=== PATIENT | female | born 1965 | race Caucasian/White ===

== ENCOUNTER 2017-05-31 21:29 | Observation (INO) ==
[2017-05-31] MEDS ORDERED: ONDANSETRON 4 MG/2 ML VIAL IV STA (22:05)
[2017-05-31] MEDS ORDERED: MORPHINE 2 MG/1 ML SYRINGE IV STA (22:05)
[2017-05-31] MEDS ORDERED: ONDANSETRON 4 MG/2 ML VIAL ONE (22:11)
[2017-05-31] MEDS ORDERED: MORPHINE 4 MG/1 ML VIAL ONE ×2 (22:12→23:10)
[2017-05-31 23:04] LABS: Basophils % 0.5 % (0.0-0.8); Eosinophils # 0.5 10*3/uL (0.0-0.87); Eosinophils % 6.6 % (0.00-10.9); Hematocrit 30.6 VOL% (35.7-47.0); Hemoglobin 10.1 GM/DL (12.0-16.0); Immature Granulocytes % 0.5 %; Immature Granulocytes Absolute 0.04 #; Lymphocytes % 24.7 % (21.3-54.2); Mean Corpuscular Hemoglobin 32 PG (27-34); Mean Corpuscular Volume 95.3 FL (87-102); Mean Platelet Volume 10.2 FL (9.6-12.0); Monocytes # 0.5 10*3/uL (0.11-0.8); Monocytes % 6.6 % (1.7-12.7); Neutrophils # 4.9 10*3/uL (1.4-7.4); Neutrophils % 61.1 % (38.7-73.9); Platelet Count 270 T/CUMM (130-400); Red Blood Count 3.21 MC/CUMM (3.8-5.5); Red Cell Distribution Width 12.2 % (9.3-17.3)
[2017-05-31 23:12] LABS: Calcium 7.3 MG/DL (8.5-10.1); Osmolality,Calculated 289.8 MOS/KG (273-304)
[2017-06-01] MEDS ORDERED: ceFAZolin 2,000 MG in PREMIX 1 EACH IV ONE (00:30)
[2017-06-01] MEDS ORDERED: LIDOCAINE 1%/EPI INJ 20 ML VIAL ONE (00:53)
[2017-06-01] MEDS ORDERED: BUPIVACAINE MPF 0.25% /EPI 30 ML VIAL ONE (00:53)
[2017-06-01] MEDS ORDERED: TISSUE ADHESIVE 1 EACH APPLICATOR TOP ONE (00:53)
[2017-06-01] MEDS ORDERED: ceFAZolin 1,000 MG VIAL ONE (00:57)
[2017-06-01] MEDS ORDERED: MORPHINE 4 MG/1 ML VIAL IV PRN (01:27)
[2017-06-01] MEDS ORDERED: ONDANSETRON 4 MG/2 ML VIAL IV PRN (01:27)
[2017-06-01] MEDS ORDERED: LACTATED RINGERS 1,000 ML IV SCH ×2 (01:30→01:50)
[2017-06-01 02:06] LABS: Hematocrit 32.9 VOL% (35.7-47.0); Hemoglobin 10.6 GM/DL (12.0-16.0)
[2017-06-01] MEDS ORDERED: PROPOFOL 200 MG/20 ML VIAL IV ONE (02:06)
[2017-06-01] MEDS ORDERED: SEVOFLURANE 1 UNIT/15 MINUTE INH ONE (02:06)
[2017-06-01] MEDS ORDERED: ACETAMINOPHEN 1,000 MG/100 ML VIAL IV ONE (02:07)
[2017-06-01] MEDS ORDERED: SUCCINYLCHOLINE 200 MG/10 ML VIAL ONE (02:07)
[2017-06-01] MEDS ORDERED: fentaNYL 100 MCG/2 ML VIAL ONE (02:07)
[2017-06-01] MEDS ORDERED: LACTATED RINGERS 1,000 ML IV ONE (02:07)
[2017-06-01] MEDS ORDERED: MIDAZOLAM 2 MG/2 ML VIAL ONE (02:07)
[2017-06-01] MEDS ORDERED: KETOROLAC 30 MG/1 ML VIAL ONE (02:07)
[2017-06-01] MEDS ORDERED: MEPERIDINE 25 MG/1 ML VIAL IV PRN (02:15)
[2017-06-01 02:18] LABS: PT Patient Result 10.7 SECS
[2017-06-01 06:00] LABS: Hematocrit 27.5 VOL% (35.7-47.0); Hemoglobin 9.1 GM/DL (12.0-16.0)
[2017-06-01] MEDS ORDERED: ceFAZolin 2,000 MG in PREMIX 1 EACH IV SCH (08:00)
[2017-06-01] MEDS ORDERED: LINACLOTIDE 145 MCG CAPSULE PO SCH (09:00)
[2017-06-01] MEDS ORDERED: CARVEDILOL 3.125 MG TABLET PO SCH (09:00)
[2017-06-01] MEDS ORDERED: PANTOPRAZOLE 40 MG TABLET PO SCH (09:00)
[2017-06-01 11:12] VITALS: BP 143/87
== END 2017-06-01 14:15 | disposition home or self-care (01) ==
LOC: EDUNIT# → EDBD → N.ED 21:29 → N.EDINP 21:29 → N.3E 23:58
PROVIDERS: ADMIT Surgery; ATTEND Surgery

== ENCOUNTER 2019-11-13 11:27 | Inpatient (IN) ==
[2019-11-13] MEDS ORDERED: SODIUM CHLORIDE 0.9% 1,000 ML IV STA (12:31)
[2019-11-13] MEDS ORDERED: MEPERIDINE 50 MG/1 ML VIAL IV STA (12:31)
[2019-11-13] MEDS ORDERED: ONDANSETRON 4 MG/2 ML VIAL IV STA (12:31)
[2019-11-13 13:39] LABS: Basophils % 0.1 % (0.0-0.8); Eosinophils % 0.3 % (0.00-10.9); Hematocrit 29.6 VOL% (35.7-47.0); Hemoglobin 9.2 GM/DL (12.0-16.0); Immature Granulocytes % 0.5 %; Immature Granulocytes Absolute 0.04 #; Lymphocytes # 0.6 10*3/uL (1.4-4.0); Lymphocytes % 7.7 % (21.3-54.2); Mean Corpuscular HGB Conc 31.1 GM/DL (32-36); Mean Corpuscular Volume 102.8 FL (87-102); Mean Platelet Volume 12.4 FL (9.6-12.0); Monocytes % 5.7 % (1.7-12.7); Neutrophils % 85.7 % (38.7-73.9); Platelet Count 121 T/CUMM (130-400); Red Blood Count 2.88 MC/CUMM (3.8-5.5); Red Cell Distribution Width 17.5 % (9.3-17.3); White Blood Count 7.7 T/CUMM (4-12)
[2019-11-13 13:51] LABS: Albumin 2.9 G/DL (3.4-5.0); Bilirubin,Total 0.8 MG/DL (0.2-1.0); Calcium 8.8 MG/DL (8.5-10.1); Total Protein 6.5 G/DL (6.4-8.3)
[2019-11-13 15:18] LABS: Bilirubin,Urine Negative (Negative); Blood, Urine Negative (Negative); Glucose,Urine (UA) Negative (Negative); Ketones,Urine 20 mg/dL (Negative); Nitrite,Urine Negative (Negative); Protein,Urine Negative; RBC,Urine 1 /HPF (0-4); Squamous Epithelial Cell,Urine Occasional /HPF (0-10); Urine Appearance CLEAR (Clear); Urine Color Yellow (Yellow); Urine Specific Gravity > 1.060 (1.001-1.035); WBC,Urine <1 /HPF (0-6)
[2019-11-13] MEDS ORDERED: MEPERIDINE 25 MG/1 ML VIAL IV STA (15:43)
[2019-11-13] MEDS ORDERED: cefTRIAXone 1,000 MG in SODIUM CHLORIDE 0.9% 100 ML IV STA (15:44)
[2019-11-13] MEDS ORDERED: DEXTROSE 50% 25 GM/50 ML VIAL IV PRN (16:03)
[2019-11-13] MEDS ORDERED: GLUCAGON 1 MG VIAL IM PRN (16:03)
[2019-11-13] MEDS ORDERED: ALBUTEROL/IPRATROPIUM 3 ML NEB RESP TX PRN (16:03)
[2019-11-13] MEDS ORDERED: oxyCODONE IR 5 MG TABLET PO PRN (16:12)
[2019-11-13] MEDS ORDERED: PROMETHAZINE 25 MG TABLET PO PRN (16:12)
[2019-11-13] MEDS ORDERED: fentaNYL 25 MCG/HR PATCH TRANSDERM SCH (18:00)
[2019-11-13] MEDS: HYDROmorphone 2 MG/1 ML VIAL IV PRN ×2 (18:45→22:39)
[2019-11-13] MEDS ORDERED: POLYETHYLENE GLYCOL POWDER 17 GM PACK PO ONE (20:22)
[2019-11-13] MEDS: AZITHROMYCIN INJ 500 MG in SODIUM CHLORIDE 0.9% 250 ML IV SCH (22:35)
[2019-11-14] MEDS: HYDROmorphone 2 MG/1 ML VIAL IV PRN ×5 (02:10→21:15)
[2019-11-14] MEDS: LINACLOTIDE 145 MCG CAPSULE PO SCH (07:15)
[2019-11-14 07:42] LABS: Basophils % 0.2 % (0.0-0.8); Eosinophils # 0.1 10*3/uL (0.0-0.87); Eosinophils % 1.2 % (0.00-10.9); Hematocrit 26.2 VOL% (35.7-47.0); Hemoglobin 8.2 GM/DL (12.0-16.0); Immature Granulocytes % 0.6 %; Immature Granulocytes Absolute 0.03 #; Lymphocytes # 0.7 10*3/uL (1.4-4.0); Lymphocytes % 12.7 % (21.3-54.2); Mean Corpuscular HGB Conc 31.3 GM/DL (32-36); Mean Corpuscular Volume 104.4 FL (87-102); Mean Platelet Volume 13.3 FL (9.6-12.0); Monocytes % 11.7 % (1.7-12.7); Neutrophils % 73.6 % (38.7-73.9); Red Blood Count 2.51 MC/CUMM (3.8-5.5); Red Cell Distribution Width 18.2 % (9.3-17.3); White Blood Count 5.1 T/CUMM (4-12)
[2019-11-14 07:44] LABS: Platelet Count 105 T/CUMM (130-400)
[2019-11-14 07:57] LABS: Albumin 2.5 G/DL (3.4-5.0); Bilirubin,Total 0.5 MG/DL (0.2-1.0); Calcium 8.8 MG/DL (8.5-10.1); Osmolality,Calculated 273.7 MOS/KG (273-304); Total Protein 6.3 G/DL (6.4-8.3)
[2019-11-14 08:08] LABS: Hypochromasia 2+; Microcytosis Slight
[2019-11-14] MEDS: carvediloL 6.25 MG TABLET PO SCH (09:27)
[2019-11-14] MEDS: MULTIVITAMIN (BEROCCA) TABLET PO SCH (09:28)
[2019-11-14] MEDS: ENOXAPARIN 40 MG/0.4 ML SYRINGE SUBCUT SCH (09:28)
[2019-11-14] MEDS: ONDANSETRON 4 MG/2 ML VIAL IV PRN ×3 (09:44→17:42)
[2019-11-14] MEDS: fentaNYL 50 MCG/HR PATCH TRANSDERM SCH (13:37)
[2019-11-14 14:00] LABS: Ferritin 445.2 ng/ml (8-252)
[2019-11-14 15:08] LABS: Folate 16.4 NG/ML (5.4-24.0)
[2019-11-14] MEDS: cefTRIAXone 1,000 MG in SYRINGE 1 EACH IV SCH (15:51)
[2019-11-14] MEDS: HYDROmorphone 2 MG TABLET PO PRN (17:41)
[2019-11-14] MEDS: AZITHROMYCIN INJ 500 MG in SODIUM CHLORIDE 0.9% 250 ML IV SCH (21:52)
[2019-11-15] MEDS: HYDROmorphone 2 MG/1 ML VIAL IV PRN ×3 (02:06→21:39)
[2019-11-15] MEDS: HYDROmorphone 2 MG TABLET PO PRN ×4 (06:35→18:00)
[2019-11-15] MEDS: LINACLOTIDE 145 MCG CAPSULE PO SCH (06:36)
[2019-11-15 06:44] LABS: Basophils % 0.2 % (0.0-0.8); Eosinophils # 0.1 10*3/uL (0.0-0.87); Eosinophils % 1.3 % (0.00-10.9); Hematocrit 26.1 VOL% (35.7-47.0); Hemoglobin 8.1 GM/DL (12.0-16.0); Immature Granulocytes % 0.4 %; Immature Granulocytes Absolute 0.02 #; Lymphocytes # 0.8 10*3/uL (1.4-4.0); Lymphocytes % 15.1 % (21.3-54.2); Mean Corpuscular Volume 104.8 FL (87-102); Mean Platelet Volume 13.9 FL (9.6-12.0); Monocytes % 11.8 % (1.7-12.7); Neutrophils % 71.2 % (38.7-73.9); Red Blood Count 2.49 MC/CUMM (3.8-5.5); Red Cell Distribution Width 18.3 % (9.3-17.3); White Blood Count 5.2 T/CUMM (4-12)
[2019-11-15 06:45] LABS: Platelet Count 91 T/CUMM (130-400)
[2019-11-15 07:22] LABS: Platelet Estimate Decreased
[2019-11-15 07:23] LABS: Anisocytosis 1+; Polychromasia Slight
[2019-11-15 07:24] LABS: Macrocytosis Slight
[2019-11-15] MEDS: ENOXAPARIN 40 MG/0.4 ML SYRINGE SUBCUT SCH (08:20)
[2019-11-15] MEDS: MULTIVITAMIN (BEROCCA) TABLET PO SCH (08:21)
[2019-11-15] MEDS: carvediloL 6.25 MG TABLET PO SCH (08:21)
[2019-11-15] MEDS: ONDANSETRON 4 MG/2 ML VIAL IV PRN ×3 (08:35→21:52)
[2019-11-15] MEDS ORDERED: fentaNYL 25 MCG/HR PATCH TRANSDERM SCH (09:00)
[2019-11-15] MEDS ORDERED: MAGNESIUM HYDROXIDE SUSP 30 ML UDCUP PO PRN (10:43)
[2019-11-15] MEDS: POLYETHYLENE GLYCOL POWDER 17 GM PACK PO SCH (13:55)
[2019-11-15] MEDS: PANTOPRAZOLE 40 MG VIAL IV SCH ×2 (14:22→21:39)
[2019-11-15] MEDS: cefTRIAXone 1,000 MG in SYRINGE 1 EACH IV SCH (14:22)
[2019-11-15 15:01] LABS: Hematocrit 26.2 VOL% (35.7-47.0); Hemoglobin 8.1 GM/DL (12.0-16.0)
[2019-11-15] MEDS: AZITHROMYCIN INJ 500 MG in SODIUM CHLORIDE 0.9% 250 ML IV SCH (21:39)
[2019-11-15] MEDS: PROMETHAZINE 25 MG/1 ML VIAL IM PRN (23:05)
[2019-11-16] MEDS: HYDROmorphone 2 MG/1 ML VIAL IV PRN ×2 (02:37→22:53)
[2019-11-16 06:02] LABS: Basophils % 0.2 % (0.0-0.8); Eosinophils # 0.1 10*3/uL (0.0-0.87); Eosinophils % 0.9 % (0.00-10.9); Hematocrit 27.5 VOL% (35.7-47.0); Hemoglobin 8.4 GM/DL (12.0-16.0); Immature Granulocytes % 0.6 %; Immature Granulocytes Absolute 0.04 #; Lymphocytes # 0.7 10*3/uL (1.4-4.0); Lymphocytes % 11.2 % (21.3-54.2); Mean Corpuscular HGB Conc 30.5 GM/DL (32-36); Mean Corpuscular Volume 105.4 FL (87-102); Mean Platelet Volume 10.6 FL (9.6-12.0); Monocytes % 12.4 % (1.7-12.7); Neutrophils % 74.7 % (38.7-73.9); Platelet Count 142 T/CUMM (130-400); Red Blood Count 2.61 MC/CUMM (3.8-5.5); Red Cell Distribution Width 18.5 % (9.3-17.3); White Blood Count 6.6 T/CUMM (4-12)
[2019-11-16 06:25] LABS: Hypochromasia Slight
[2019-11-16 06:26] LABS: Macrocytosis Slight; Platelet Estimate Normal
[2019-11-16 06:29] LABS: Osmolality,Calculated 273.8 MOS/KG (273-304)
[2019-11-16] MEDS: HYDROmorphone 2 MG TABLET PO PRN ×3 (06:54→19:54)
[2019-11-16] MEDS: LINACLOTIDE 145 MCG CAPSULE PO SCH (06:55)
[2019-11-16] MEDS: carvediloL 6.25 MG TABLET PO SCH (08:42)
[2019-11-16] MEDS: POLYETHYLENE GLYCOL POWDER 17 GM PACK PO SCH ×2 (08:42→08:43)
[2019-11-16] MEDS: MULTIVITAMIN (BEROCCA) TABLET PO SCH (08:42)
[2019-11-16] MEDS: PANTOPRAZOLE 40 MG VIAL IV SCH ×2 (08:43→20:17)
[2019-11-16] MEDS: PROMETHAZINE 25 MG/1 ML VIAL IM PRN (14:15)
[2019-11-16] MEDS: cefTRIAXone 1,000 MG in SYRINGE 1 EACH IV SCH (16:07)
[2019-11-16] MEDS: PREGABALIN 25 MG CAPSULE PO SCH ×2 (16:08→20:16)
[2019-11-16] MEDS: AZITHROMYCIN INJ 500 MG in SODIUM CHLORIDE 0.9% 250 ML IV SCH (21:48)
[2019-11-17] MEDS: LINACLOTIDE 145 MCG CAPSULE PO SCH (06:40)
[2019-11-17] MEDS: HYDROmorphone 2 MG TABLET PO PRN ×3 (06:41→15:30)
[2019-11-17 07:04] LABS: Basophils % 0.2 % (0.0-0.8); Eosinophils # 0.1 10*3/uL (0.0-0.87); Eosinophils % 0.8 % (0.00-10.9); Hematocrit 26.1 VOL% (35.7-47.0); Hemoglobin 7.9 GM/DL (12.0-16.0); Immature Granulocytes % 0.6 %; Immature Granulocytes Absolute 0.04 #; Lymphocytes # 0.8 10*3/uL (1.4-4.0); Lymphocytes % 12.7 % (21.3-54.2); Mean Corpuscular HGB Conc 30.3 GM/DL (32-36); Mean Platelet Volume 13.6 FL (9.6-12.0); Monocytes % 12.9 % (1.7-12.7); Neutrophils % 72.8 % (38.7-73.9); Red Blood Count 2.44 MC/CUMM (3.8-5.5); Red Cell Distribution Width 18.6 % (9.3-17.3); White Blood Count 6.5 T/CUMM (4-12)
[2019-11-17 07:05] LABS: Platelet Count 92 T/CUMM (130-400)
[2019-11-17 07:40] LABS: Hypochromasia 2+; Microcytosis 1+; Platelet Estimate Decreased
[2019-11-17] MEDS: POLYETHYLENE GLYCOL POWDER 17 GM PACK PO SCH (09:30)
[2019-11-17] MEDS: carvediloL 6.25 MG TABLET PO SCH (09:32)
[2019-11-17] MEDS: MULTIVITAMIN (BEROCCA) TABLET PO SCH (09:32)
[2019-11-17] MEDS: PANTOPRAZOLE 40 MG VIAL IV SCH ×2 (09:33→20:34)
[2019-11-17] MEDS: fentaNYL 50 MCG/HR PATCH TRANSDERM SCH (09:38)
[2019-11-17 09:53] LABS: Albumin 2.5 G/DL (3.4-5.0); Bilirubin,Total 0.6 MG/DL (0.2-1.0); Total Protein 6.5 G/DL (6.4-8.3)
[2019-11-17] MEDS ORDERED: FUROSEMIDE 20 MG/2 ML VIAL IV ONE (10:04)
[2019-11-17] MEDS: PREGABALIN 25 MG CAPSULE PO SCH ×3 (11:31→20:34)
[2019-11-17] MEDS: LIDOCAINE 5% PATCH TRANSDERM SCH (13:59)
[2019-11-17] MEDS ORDERED: PIPERACILLIN/TAZOBACTAM 3,375 MG in SODIUM CHLORIDE 0.9% 100 ML IV SCH (14:00)
[2019-11-17] MEDS: MEROPENEM 500 MG in SODIUM CHLORIDE 0.9% 100 ML IV SCH ×2 (14:05→21:19)
[2019-11-17] MEDS: methylPREDNISolone SOD SUC 40 MG/1 ML VIAL IV SCH ×2 (14:36→21:20)
[2019-11-17] MEDS ORDERED: fentaNYL 75 MCG/HR PATCH TRANSDERM SCH (15:38)
[2019-11-17] MEDS: SUCRALFATE 1 GM/10 ML UDCUP PO SCH ×2 (16:35→21:11)
[2019-11-17] MEDS: HYDROmorphone 2 MG/1 ML VIAL IV PRN (21:19)
[2019-11-18] MEDS: HYDROmorphone 2 MG TABLET PO PRN ×5 (03:48→21:38)
[2019-11-18 06:25] LABS: Hematocrit 26.8 VOL% (35.7-47.0); Hemoglobin 8.3 GM/DL (12.0-16.0); Immature Granulocytes % 0.8 %; Immature Granulocytes Absolute 0.04 #; Lymphocytes # 0.5 10*3/uL (1.4-4.0); Lymphocytes % 9.3 % (21.3-54.2); Mean Corpuscular Volume 104.7 FL (87-102); Mean Platelet Volume 12.3 FL (9.6-12.0); Monocytes % 2.7 % (1.7-12.7); Neutrophils % 87.2 % (38.7-73.9); Platelet Count 115 T/CUMM (130-400); Red Blood Count 2.56 MC/CUMM (3.8-5.5); White Blood Count 5.2 T/CUMM (4-12)
[2019-11-18] MEDS: LINACLOTIDE 145 MCG CAPSULE PO SCH (06:41)
[2019-11-18] MEDS: methylPREDNISolone SOD SUC 40 MG/1 ML VIAL IV SCH ×3 (06:42→21:39)
[2019-11-18] MEDS: MEROPENEM 500 MG in SODIUM CHLORIDE 0.9% 100 ML IV SCH ×3 (06:42→21:38)
[2019-11-18 06:48] LABS: Albumin 2.5 G/DL (3.4-5.0); Bilirubin,Total 0.5 MG/DL (0.2-1.0); Calcium 9.1 MG/DL (8.5-10.1); Osmolality,Calculated 271.2 MOS/KG (273-304); Total Protein 6.5 G/DL (6.4-8.3)
[2019-11-18] MEDS: SUCRALFATE 1 GM/10 ML UDCUP PO SCH ×4 (07:55→21:39)
[2019-11-18 08:56] LABS: Platelet Estimate Adequate
[2019-11-18 08:57] LABS: Anisocytosis 2+; Spherocytes Few
[2019-11-18] MEDS: PREGABALIN 25 MG CAPSULE PO SCH ×3 (09:14→21:38)
[2019-11-18] MEDS: PANTOPRAZOLE 40 MG VIAL IV SCH ×2 (09:15→21:37)
[2019-11-18] MEDS: carvediloL 6.25 MG TABLET PO SCH (09:19)
[2019-11-18] MEDS: MULTIVITAMIN (BEROCCA) TABLET PO SCH (09:19)
[2019-11-18] MEDS: LIDOCAINE 5% PATCH TRANSDERM SCH (09:21)
[2019-11-18] MEDS: POLYETHYLENE GLYCOL POWDER 17 GM PACK PO SCH (09:34)
[2019-11-18] MEDS ORDERED: FUROSEMIDE 20 MG/2 ML VIAL IV ONE (10:29)
[2019-11-18] MEDS: HYDROmorphone 2 MG/1 ML VIAL IV PRN ×2 (14:22→19:19)
[2019-11-18] MEDS: ONDANSETRON 4 MG/2 ML VIAL IV PRN (19:19)
[2019-11-18] MEDS ORDERED: POLYETHYLENE GLYCOL POWDER 17 GM PACK PO SCH (21:00)
[2019-11-19] MEDS: HYDROmorphone 2 MG TABLET PO PRN ×2 (04:25→09:49)
[2019-11-19 05:37] LABS: Basophils % 0.1 % (0.0-0.8); Hematocrit 29.1 VOL% (35.7-47.0); Hemoglobin 8.8 GM/DL (12.0-16.0); Immature Granulocytes % 0.6 %; Immature Granulocytes Absolute 0.06 #; Lymphocytes # 0.6 10*3/uL (1.4-4.0); Lymphocytes % 5.7 % (21.3-54.2); Mean Corpuscular HGB Conc 30.2 GM/DL (32-36); Mean Corpuscular Volume 104.3 FL (87-102); Mean Platelet Volume 11.2 FL (9.6-12.0); Monocytes % 7.2 % (1.7-12.7); Neutrophils % 86.4 % (38.7-73.9); Platelet Count 161 T/CUMM (130-400); Red Blood Count 2.79 MC/CUMM (3.8-5.5); Red Cell Distribution Width 18.3 % (9.3-17.3); White Blood Count 9.6 T/CUMM (4-12)
[2019-11-19 05:56] LABS: Albumin 2.7 G/DL (3.4-5.0); Bilirubin,Total 0.6 MG/DL (0.2-1.0); Calcium 9.6 MG/DL (8.5-10.1); Osmolality,Calculated 274.1 MOS/KG (273-304); Total Protein 6.8 G/DL (6.4-8.3)
[2019-11-19] MEDS: methylPREDNISolone SOD SUC 40 MG/1 ML VIAL IV SCH ×3 (06:27→22:57)
[2019-11-19] MEDS: SUCRALFATE 1 GM/10 ML UDCUP PO SCH ×4 (06:28→21:45)
[2019-11-19] MEDS: MEROPENEM 500 MG in SODIUM CHLORIDE 0.9% 100 ML IV SCH ×3 (06:28→23:00)
[2019-11-19] MEDS: LINACLOTIDE 145 MCG CAPSULE PO SCH ×2 (06:28→16:08)
[2019-11-19] MEDS: PANTOPRAZOLE 40 MG VIAL IV SCH ×2 (09:48→21:24)
[2019-11-19] MEDS: PREGABALIN 25 MG CAPSULE PO SCH ×3 (09:49→21:23)
[2019-11-19] MEDS: MULTIVITAMIN (BEROCCA) TABLET PO SCH (09:49)
[2019-11-19] MEDS: carvediloL 6.25 MG TABLET PO SCH (09:49)
[2019-11-19] MEDS: LIDOCAINE 5% PATCH TRANSDERM SCH (09:54)
[2019-11-19] MEDS ORDERED: fentaNYL 100 MCG/HR PATCH TRANSDERM SCH (10:00)
[2019-11-19] MEDS: ENOXAPARIN 40 MG/0.4 ML SYRINGE SUBCUT SCH ×2 (11:18→11:33)
[2019-11-19] MEDS: POLYETHYLENE GLYCOL POWDER 17 GM PACK PO SCH (21:23)
[2019-11-19] MEDS: ONDANSETRON 4 MG/2 ML VIAL IV PRN (21:35)
[2019-11-19] MEDS: HYDROmorphone 2 MG/1 ML VIAL IV PRN (21:36)
[2019-11-20] MEDS: ONDANSETRON 4 MG/2 ML VIAL IV PRN ×2 (03:18→13:19)
[2019-11-20] MEDS: HYDROmorphone 2 MG/1 ML VIAL IV PRN (03:18)
[2019-11-20 04:26] LABS: Basophils % 0.1 % (0.0-0.8); Hematocrit 30.4 VOL% (35.7-47.0); Hemoglobin 8.9 GM/DL (12.0-16.0); Immature Granulocytes % 0.7 %; Immature Granulocytes Absolute 0.07 #; Lymphocytes # 0.6 10*3/uL (1.4-4.0); Lymphocytes % 5.7 % (21.3-54.2); Mean Corpuscular HGB Conc 29.3 GM/DL (32-36); Mean Corpuscular Volume 108.2 FL (87-102); Mean Platelet Volume 11.1 FL (9.6-12.0); Monocytes % 3.7 % (1.7-12.7); Neutrophils % 89.8 % (38.7-73.9); Platelet Count 143 T/CUMM (130-400); Red Blood Count 2.81 MC/CUMM (3.8-5.5); Red Cell Distribution Width 18.3 % (9.3-17.3); White Blood Count 9.6 T/CUMM (4-12)
[2019-11-20 04:53] LABS: Calcium 9.2 MG/DL (8.5-10.1); Osmolality,Calculated 276.1 MOS/KG (273-304)
[2019-11-20] MEDS: MEROPENEM 500 MG in SODIUM CHLORIDE 0.9% 100 ML IV SCH (06:16)
[2019-11-20] MEDS: methylPREDNISolone SOD SUC 40 MG/1 ML VIAL IV SCH ×3 (06:21→21:08)
[2019-11-20] MEDS: SUCRALFATE 1 GM/10 ML UDCUP PO SCH ×4 (07:42→21:08)
[2019-11-20] MEDS: LINACLOTIDE 145 MCG CAPSULE PO SCH (07:42)
[2019-11-20] MEDS: cefTRIAXone 1,000 MG in SYRINGE 1 EACH IV SCH (10:39)
[2019-11-20] MEDS: FUROSEMIDE 40 MG/4 ML VIAL IV SCH (10:39)
[2019-11-20] MEDS: HYDROmorphone 2 MG TABLET PO PRN ×3 (11:28→21:07)
[2019-11-20] MEDS: MULTIVITAMIN (BEROCCA) TABLET PO SCH (11:30)
[2019-11-20] MEDS: carvediloL 6.25 MG TABLET PO SCH (11:30)
[2019-11-20] MEDS: LIDOCAINE 5% PATCH TRANSDERM SCH (11:32)
[2019-11-20] MEDS: POLYETHYLENE GLYCOL POWDER 17 GM PACK PO SCH ×2 (11:37→21:08)
[2019-11-20] MEDS ORDERED: FENTANYL BUCCAL PRN (11:37)
[2019-11-20] MEDS: PANTOPRAZOLE 40 MG VIAL IV SCH ×2 (11:43→21:08)
[2019-11-20] MEDS: ENOXAPARIN 40 MG/0.4 ML SYRINGE SUBCUT SCH (11:51)
[2019-11-20] MEDS ORDERED: GABAPENTIN 100 MG CAPSULE PO SCH (21:00)
[2019-11-20] MEDS: OXYMETAZOLINE 0.05% NASAL SPRAY 15 ML BOTTLE BOTH NARES SCH (21:09)
[2019-11-20] MEDS: FLUTICASONE 50 MCG NASAL SPRAY 16 GM BOTTLE BOTH NARES SCH (21:09)
[2019-11-21] MEDS: LINACLOTIDE 145 MCG CAPSULE PO SCH (08:44)
[2019-11-21] MEDS: SUCRALFATE 1 GM/10 ML UDCUP PO SCH ×2 (08:44→11:06)
[2019-11-21] MEDS: HYDROmorphone 2 MG TABLET PO PRN (08:45)
[2019-11-21] MEDS: methylPREDNISolone SOD SUC 40 MG/1 ML VIAL IV SCH (08:46)
[2019-11-21] MEDS: MULTIVITAMIN (BEROCCA) TABLET PO SCH (08:46)
[2019-11-21] MEDS: cefTRIAXone 1,000 MG in SYRINGE 1 EACH IV SCH (08:46)
[2019-11-21] MEDS: FUROSEMIDE 40 MG/4 ML VIAL IV SCH (08:47)
[2019-11-21] MEDS: POLYETHYLENE GLYCOL POWDER 17 GM PACK PO SCH (08:47)
[2019-11-21] MEDS: LIDOCAINE 5% PATCH TRANSDERM SCH (08:48)
[2019-11-21] MEDS: carvediloL 6.25 MG TABLET PO SCH (08:48)
[2019-11-21] MEDS: OXYMETAZOLINE 0.05% NASAL SPRAY 15 ML BOTTLE BOTH NARES SCH (08:58)
[2019-11-21] MEDS: PANTOPRAZOLE 40 MG VIAL IV SCH (08:58)
[2019-11-21] MEDS: FLUTICASONE 50 MCG NASAL SPRAY 16 GM BOTTLE BOTH NARES SCH (10:54)
[2019-11-21] MEDS: ENOXAPARIN 40 MG/0.4 ML SYRINGE SUBCUT SCH (10:54)
[2019-11-21 11:02] VITALS: BP 117/76
[2019-11-21] MEDS ORDERED: HEPARIN LOCK FLUSH 500 UNIT/5 ML SYRINGE IV ONE (11:07)
== END 2019-11-21 13:35 | disposition home or self-care (01) | DRG 947 ==
LOC: N.ED 11:27 → N.EDINP 11:27 → N.4E 17:37 → SUATTDRO 11-15 14:48
PROVIDERS: ADMIT Internal Medicine; ATTEND Internal Medicine

== ENCOUNTER 2019-12-12 22:20 | Inpatient (IN) ==
[2019-12-12] MEDS ORDERED: HYDROmorphone 2 MG/1 ML VIAL IV STA (23:22)
[2019-12-12] MEDS ORDERED: ONDANSETRON 4 MG/2 ML VIAL IV STA (23:22)
[2019-12-12 23:52] LABS: Eosinophils % 1.3 % (0.00-10.9); Hematocrit 25.2 VOL% (35.7-47.0); Hemoglobin 7.8 GM/DL (12.0-16.0); Immature Granulocytes % 1.3 %; Immature Granulocytes Absolute 0.03 #; Lymphocytes # 0.3 10*3/uL (1.4-4.0); Lymphocytes % 12.9 % (21.3-54.2); Mean Corpuscular Volume 104.6 FL (87-102); Monocytes % 1.3 % (1.7-12.7); Neutrophils % 83.2 % (38.7-73.9); Red Blood Count 2.41 MC/CUMM (3.8-5.5); White Blood Count 2.3 T/CUMM (4-12)
[2019-12-12 23:54] LABS: Platelet Count 29 T/CUMM (130-400)
[2019-12-13 00:10] LABS: Alanine Aminotransferase 218 U/L (13-56); Alkaline Phosphatase 494 U/L (45-117); Amylase 20 U/L (25-115); Aspartate Amino Transferase 175 U/L (0-37); Blood Urea Nitrogen 11 MG/DL (7-18); Calcium 8.7 MG/DL (8.5-10.1); Estimated Glom Filtration Rate 124 ML/MIN; Glucose 125 MG/DL (74-106); Total Protein 5.5 G/DL (6.4-8.3); Troponin I < 0.015 NG/ML (0.00-0.045)
[2019-12-13 00:42] LABS: Hypochromasia 1+; Macrocytosis Slight; Platelet Estimate Decreased
[2019-12-13 01:05] LABS: Basophils % 0.4 % (0.0-0.8); Eosinophils % 0.4 % (0.00-10.9); Hematocrit 26.9 VOL% (35.7-47.0); Hemoglobin 8.4 GM/DL (12.0-16.0); Immature Granulocytes % 0.4 %; Immature Granulocytes Absolute 0.01 #; Lymphocytes # 0.3 10*3/uL (1.4-4.0); Lymphocytes % 12.2 % (21.3-54.2); Mean Corpuscular HGB Conc 31.2 GM/DL (32-36); Mean Corpuscular Volume 104.3 FL (87-102); Monocytes % 1.7 % (1.7-12.7); Neutrophils % 84.9 % (38.7-73.9); Red Blood Count 2.58 MC/CUMM (3.8-5.5); White Blood Count 2.3 T/CUMM (4-12)
[2019-12-13 01:09] LABS: Platelet Count 31 T/CUMM (130-400)
[2019-12-13] MEDS ORDERED: DEXTROSE 50% 25 GM/50 ML VIAL IV PRN (01:19)
[2019-12-13] MEDS ORDERED: GLUCAGON 1 MG VIAL IM PRN (01:19)
[2019-12-13 01:22] LABS: Bacteria,Urine Moderate /HPF (Few); Blood, Urine Negative (Negative); Calcium Oxalate Crystals,Urine Many /HPF (Few); Glucose,Urine (UA) Negative (Negative); Ketones,Urine 20 mg/dL (Negative); Mucus,Urine Many /LPF (Occasional); Nitrite,Urine Negative (Negative); Protein,Urine 30 MG/DL; RBC,Urine 28 /HPF (0-4); Squamous Epithelial Cell,Urine Many /HPF (0-10); Urine Appearance CLOUDY (Clear); Urine Color Amber (Yellow); Urine Specific Gravity 1.026 (1.001-1.035); WBC,Urine 51 /HPF (0-6)
[2019-12-13 01:24] LABS: Bilirubin,Urine Moderate mg/dL (Negative)
[2019-12-13] MEDS ORDERED: DEXTROSE 50% 25 GM/50 ML SYRINGE IV PRN (01:31)
[2019-12-13] MEDS: HYDROmorphone 2 MG/1 ML VIAL IV PRN ×4 (02:46→20:11)
[2019-12-13] MEDS ORDERED: POLYETHYLENE GLYCOL POWDER 17 GM PACK PO PRN (04:07)
[2019-12-13] MEDS ORDERED: PROMETHAZINE 25 MG TABLET PO PRN (04:07)
[2019-12-13] MEDS ORDERED: oxyCODONE IR 5 MG TABLET PO PRN (04:08)
[2019-12-13] MEDS ORDERED: fentaNYL 25 MCG/HR PATCH TRANSDERM SCH (04:30)
[2019-12-13] MEDS ORDERED: FUROSEMIDE 40 MG/4 ML VIAL IV ONE ×2 (07:00→08:00)
[2019-12-13] MEDS: LINACLOTIDE 145 MCG CAPSULE PO SCH (07:34)
[2019-12-13] MEDS ORDERED: HYDROmorphone 2 MG/1 ML VIAL IV ONE (08:15)
[2019-12-13 08:41] LABS: Eosinophils % 0.9 % (0.00-10.9); Hematocrit 26.8 VOL% (35.7-47.0); Hemoglobin 8.2 GM/DL (12.0-16.0); Immature Granulocytes % 1.3 %; Immature Granulocytes Absolute 0.03 #; Lymphocytes # 0.3 10*3/uL (1.4-4.0); Lymphocytes % 11.6 % (21.3-54.2); Mean Corpuscular HGB Conc 30.6 GM/DL (32-36); Mean Corpuscular Volume 105.1 FL (87-102); Monocytes % 0.9 % (1.7-12.7); Neutrophils % 85.3 % (38.7-73.9); Red Blood Count 2.55 MC/CUMM (3.8-5.5); White Blood Count 2.3 T/CUMM (4-12)
[2019-12-13 08:47] LABS: Platelet Count 26 T/CUMM (130-400)
[2019-12-13] MEDS: MULTIVITAMIN (BEROCCA) TABLET PO SCH (08:53)
[2019-12-13] MEDS: PANTOPRAZOLE 40 MG TABLET PO SCH (08:53)
[2019-12-13] MEDS: carvediloL 6.25 MG TABLET PO SCH (08:53)
[2019-12-13 09:00] LABS: Eosinophils 3 % (0-10); Hypochromasia 1+; Lymphocytes 12 % (20-55); Microcytosis 1+; Ovalocytes Slight; Platelet Estimate Decreased; Segmented Neutrophils 85 % (50-85); Total Cells Counted 100
[2019-12-13] MEDS: ONDANSETRON 4 MG/2 ML VIAL IV PRN (09:00)
[2019-12-13] MEDS ORDERED: fentaNYL 75 MCG/HR PATCH TRANSDERM SCH (09:00)
[2019-12-13 09:09] LABS: Albumin 2.1 G/DL (3.4-5.0); Bilirubin,Total 6.4 MG/DL (0.2-1.0); Calcium 9.3 MG/DL (8.5-10.1); Total Protein 5.8 G/DL (6.4-8.3)
[2019-12-13] MEDS ORDERED: diphenhydrAMINE CAP 25 MG CAPSULE PO PRN (11:00)
[2019-12-13] MEDS ORDERED: chlorproMAZINE INJ 25 MG in SODIUM CHLORIDE 0.9% 100 ML IV PRN (11:00)
[2019-12-13] MEDS ORDERED: chlorproMAZINE INJ 50 MG in SODIUM CHLORIDE 0.9% 100 ML IV PRN (11:00)
[2019-12-13] MEDS ORDERED: TEMAZEPAM 7.5 MG CAPSULE PO PRN (11:00)
[2019-12-13] MEDS ORDERED: chlorproMAZINE 25 MG TABLET PO PRN (11:00)
[2019-12-13] MEDS: ALPRAZolam 0.25 MG TABLET PO PRN (11:20)
[2019-12-13 12:55] LABS: INR 1.1
[2019-12-13] MEDS ORDERED: SODIUM CHLORIDE 0.9% 1,000 ML IV PRN (13:27)
[2019-12-13] MEDS: PROMETHAZINE INJ 25 MG in SODIUM CHLORIDE 0.9% 50 ML IV PRN (14:05)
[2019-12-13] MEDS: GABAPENTIN 100 MG CAPSULE PO PRN (20:11)
[2019-12-13] MEDS: SPIRONOLACTONE 25 MG TABLET PO SCH ×2 (21:12→21:17)
[2019-12-14 06:53] LABS: Hematocrit 24.7 VOL% (35.7-47.0); Hemoglobin 7.6 GM/DL (12.0-16.0); Immature Granulocytes % 1.5 %; Immature Granulocytes Absolute 0.03 #; Lymphocytes # 0.3 10*3/uL (1.4-4.0); Lymphocytes % 15.6 % (21.3-54.2); Mean Corpuscular HGB Conc 30.8 GM/DL (32-36); Mean Corpuscular Volume 105.1 FL (87-102); Mean Platelet Volume 12.1 FL (9.6-12.0); Monocytes % 1.5 % (1.7-12.7); Neutrophils % 80.4 % (38.7-73.9); Red Blood Count 2.35 MC/CUMM (3.8-5.5); Red Cell Distribution Width 17.2 % (9.3-17.3)
[2019-12-14 07:07] LABS: Albumin 2.1 G/DL (3.4-5.0); Bilirubin,Total 7.2 MG/DL (0.2-1.0); Osmolality,Calculated 270.1 MOS/KG (273-304); Total Protein 5.7 G/DL (6.4-8.3)
[2019-12-14 07:09] LABS: Platelet Count 69 T/CUMM (130-400)
[2019-12-14 07:19] LABS: Eosinophils 1 % (0-10); Hypochromasia 2+; Lymphocytes 12 % (20-55); Microcytosis 1+; Ovalocytes Slight; Platelet Estimate Decreased; Segmented Neutrophils 85 % (50-85); Total Cells Counted 100
[2019-12-14] MEDS: PROMETHAZINE INJ 25 MG in SODIUM CHLORIDE 0.9% 50 ML IV PRN (07:25)
[2019-12-14] MEDS: LINACLOTIDE 145 MCG CAPSULE PO SCH ×2 (07:34→10:45)
[2019-12-14] MEDS: MULTIVITAMIN (BEROCCA) TABLET PO SCH (10:46)
[2019-12-14] MEDS: SPIRONOLACTONE 25 MG TABLET PO SCH ×2 (10:46→20:52)
[2019-12-14] MEDS: PANTOPRAZOLE 40 MG TABLET PO SCH (10:46)
[2019-12-14] MEDS: carvediloL 6.25 MG TABLET PO SCH (10:46)
[2019-12-14] MEDS: HYDROmorphone 2 MG/1 ML VIAL IV PRN ×3 (10:53→22:49)
[2019-12-14] MEDS: GABAPENTIN 100 MG CAPSULE PO PRN (20:51)
[2019-12-15] MEDS: HYDROmorphone 2 MG/1 ML VIAL IV PRN ×5 (07:55→22:33)
[2019-12-15 08:53] LABS: Basophils % 0.5 % (0.0-0.8); Hematocrit 26.4 VOL% (35.7-47.0); Lymphocytes # 0.3 10*3/uL (1.4-4.0); Lymphocytes % 15.4 % (21.3-54.2); Mean Corpuscular HGB Conc 30.3 GM/DL (32-36); Mean Corpuscular Volume 106.5 FL (87-102); Mean Platelet Volume 12.5 FL (9.6-12.0); Monocytes % 1.4 % (1.7-12.7); Neutrophils % 81.7 % (38.7-73.9); Red Blood Count 2.48 MC/CUMM (3.8-5.5); Red Cell Distribution Width 17.2 % (9.3-17.3); White Blood Count 2.1 T/CUMM (4-12)
[2019-12-15 08:56] LABS: Platelet Count 47 T/CUMM (130-400)
[2019-12-15 09:15] LABS: Albumin 2.2 G/DL (3.4-5.0); Bilirubin,Total 7.7 MG/DL (0.2-1.0); Calcium 9.2 MG/DL (8.5-10.1); Total Protein 6.1 G/DL (6.4-8.3)
[2019-12-15 09:59] LABS: Band Neutrophils 1 % (0-10); Eosinophils 1 % (0-10); Hypochromasia 1+; Lymphocytes 10 % (20-55); Segmented Neutrophils 86 % (50-85); Total Cells Counted 100
[2019-12-15 10:00] LABS: Microcytosis 1+; Platelet Estimate Decreased
[2019-12-15] MEDS: ALPRAZolam 0.25 MG TABLET PO PRN (11:10)
[2019-12-15] MEDS ORDERED: FUROSEMIDE 20 MG/2 ML VIAL IV ONE (14:00)
[2019-12-15] MEDS: fentaNYL 100 MCG/HR PATCH TRANSDERM SCH (14:11)
[2019-12-15] MEDS: SPIRONOLACTONE 25 MG TABLET PO SCH ×2 (14:15→22:20)
[2019-12-15] MEDS: carvediloL 6.25 MG TABLET PO SCH (16:26)
[2019-12-15] MEDS: PANTOPRAZOLE 40 MG TABLET PO SCH (16:26)
[2019-12-15] MEDS: MULTIVITAMIN (BEROCCA) TABLET PO SCH (16:27)
[2019-12-15] MEDS ORDERED: SODIUM CHLORIDE 0.65% NASAL SPRAY 45 ML BOTTLE BOTH NARES PRN (16:34)
[2019-12-15] MEDS: LINACLOTIDE 145 MCG CAPSULE PO SCH (17:18)
[2019-12-16] MEDS: HYDROmorphone 2 MG/1 ML VIAL IV PRN ×5 (03:41→23:45)
[2019-12-16 06:56] LABS: Eosinophils % 0.6 % (0.00-10.9); Hematocrit 24.3 VOL% (35.7-47.0); Hemoglobin 7.6 GM/DL (12.0-16.0); Immature Granulocytes % 0.6 %; Immature Granulocytes Absolute 0.01 #; Lymphocytes # 0.3 10*3/uL (1.4-4.0); Lymphocytes % 18.2 % (21.3-54.2); Mean Corpuscular HGB Conc 31.3 GM/DL (32-36); Mean Corpuscular Volume 105.7 FL (87-102); Mean Platelet Volume 11.8 FL (9.6-12.0); Monocytes % 1.3 % (1.7-12.7); Neutrophils % 79.3 % (38.7-73.9); Red Cell Distribution Width 16.9 % (9.3-17.3); White Blood Count 1.5 T/CUMM (4-12)
[2019-12-16 06:58] LABS: Platelet Count 37 T/CUMM (130-400)
[2019-12-16 07:16] LABS: Bilirubin,Total 8.2 MG/DL (0.2-1.0); Total Protein 5.6 G/DL (6.4-8.3)
[2019-12-16 07:42] LABS: Band Neutrophils 2 % (0-10); Eosinophils 2 % (0-10); Lymphocytes 18 % (20-55); Platelet Estimate Decreased; Segmented Neutrophils 76 % (50-85); Total Cells Counted 100
[2019-12-16 07:43] LABS: Anisocytosis 1+
[2019-12-16] MEDS: PANTOPRAZOLE 40 MG TABLET PO SCH (08:21)
[2019-12-16] MEDS: carvediloL 6.25 MG TABLET PO SCH (08:21)
[2019-12-16] MEDS: SPIRONOLACTONE 25 MG TABLET PO SCH ×2 (08:21→21:10)
[2019-12-16] MEDS: MULTIVITAMIN (BEROCCA) TABLET PO SCH (08:21)
[2019-12-16] MEDS: LINACLOTIDE 145 MCG CAPSULE PO SCH (08:25)
[2019-12-16] MEDS ORDERED: fentaNYL 25 MCG/HR PATCH TRANSDERM SCH (14:00)
[2019-12-16] MEDS: HYDROmorphone 2 MG TABLET PO PRN (14:02)
[2019-12-16] MEDS: PROMETHAZINE INJ 25 MG in SODIUM CHLORIDE 0.9% 50 ML IV PRN ×2 (14:03→18:56)
[2019-12-17 05:26] LABS: Basophils % 0.8 % (0.0-0.8); Eosinophils % 1.7 % (0.00-10.9); Hematocrit 23.1 VOL% (35.7-47.0); Hemoglobin 7.2 GM/DL (12.0-16.0); Immature Granulocytes % 0.8 %; Immature Granulocytes Absolute 0.01 #; Lymphocytes # 0.3 10*3/uL (1.4-4.0); Lymphocytes % 26.9 % (21.3-54.2); Mean Corpuscular HGB Conc 31.2 GM/DL (32-36); Mean Corpuscular Volume 104.5 FL (87-102); Mean Platelet Volume 12.2 FL (9.6-12.0); Monocytes % 0.8 % (1.7-12.7); Red Blood Count 2.21 MC/CUMM (3.8-5.5); Red Cell Distribution Width 16.7 % (9.3-17.3); White Blood Count 1.2 T/CUMM (4-12)
[2019-12-17 05:28] LABS: Platelet Count 20 T/CUMM (130-400)
[2019-12-17] MEDS: ONDANSETRON 4 MG/2 ML VIAL IV PRN ×2 (05:39→14:36)
[2019-12-17 05:44] LABS: Albumin 1.9 G/DL (3.4-5.0); Bilirubin,Total 8.5 MG/DL (0.2-1.0); Calcium 9.1 MG/DL (8.5-10.1); Total Protein 5.4 G/DL (6.4-8.3)
[2019-12-17 06:08] LABS: Band Neutrophils 2 % (0-10); Lymphocytes 22 % (20-55); Platelet Estimate Decreased; Segmented Neutrophils 74 % (50-85); Total Cells Counted 100
[2019-12-17 06:09] LABS: Anisocytosis 1+; Macrocytosis Slight
[2019-12-17] MEDS: HYDROmorphone 2 MG/1 ML VIAL IV PRN ×3 (06:18→17:50)
[2019-12-17] MEDS: PROMETHAZINE INJ 25 MG in SODIUM CHLORIDE 0.9% 50 ML IV PRN ×3 (06:45→18:02)
[2019-12-17] MEDS: LINACLOTIDE 145 MCG CAPSULE PO SCH (07:28)
[2019-12-17] MEDS ORDERED: SODIUM CHLORIDE 0.9% 1,000 ML IV PRN ×2 (10:20→13:47)
[2019-12-17] MEDS ORDERED: diphenhydrAMINE CAP 25 MG CAPSULE PO PRN (10:21)
[2019-12-17] MEDS: PANTOPRAZOLE 40 MG TABLET PO SCH (10:51)
[2019-12-17] MEDS: SPIRONOLACTONE 25 MG TABLET PO SCH ×2 (10:54→22:27)
[2019-12-17] MEDS: carvediloL 6.25 MG TABLET PO SCH (10:54)
[2019-12-17] MEDS: MULTIVITAMIN (BEROCCA) TABLET PO SCH (10:55)
[2019-12-17] MEDS: FILGRASTIM-SNDZ 300 MCG/0.5 ML SYRINGE SUBCUT SCH (11:32)
[2019-12-17] MEDS ORDERED: POTASSIUM CHLORIDE 20 MEQ TABLET PO ONE (13:01)
[2019-12-17] MEDS ORDERED: POLYETHYLENE GLYCOL POWDER 17 GM PACK PO PRN (14:32)
[2019-12-18] MEDS: HYDROmorphone 2 MG/1 ML VIAL IV PRN ×6 (00:05→20:13)
[2019-12-18] MEDS: ALPRAZolam 0.25 MG TABLET PO PRN ×2 (01:00→12:50)
[2019-12-18 06:13] LABS: Hematocrit 25.3 VOL% (35.7-47.0); Hemoglobin 8.1 GM/DL (12.0-16.0); Immature Granulocytes % 6.6 %; Immature Granulocytes Absolute 0.09 #; Lymphocytes # 0.3 10*3/uL (1.4-4.0); Lymphocytes % 24.3 % (21.3-54.2); Mean Corpuscular Volume 99.6 FL (87-102); Monocytes % 2.2 % (1.7-12.7); Neutrophils % 66.9 % (38.7-73.9); Red Blood Count 2.54 MC/CUMM (3.8-5.5); Red Cell Distribution Width 20.1 % (9.3-17.3); White Blood Count 1.4 T/CUMM (4-12)
[2019-12-18 06:26] LABS: Platelet Count 22 T/CUMM (130-400)
[2019-12-18 06:27] LABS: Bilirubin,Total 10.2 MG/DL (0.2-1.0); Calcium 9.1 MG/DL (8.5-10.1); Osmolality,Calculated 272.8 MOS/KG (273-304); Total Protein 5.5 G/DL (6.4-8.3)
[2019-12-18 06:40] LABS: Band Neutrophils 2 % (0-10); Hypochromasia 2+; Lymphocytes 21 % (20-55); Microcytosis Slight; Nucleated Red Blood Cells 2 (0-5); Platelet Estimate Decreased; Segmented Neutrophils 74 % (50-85); Total Cells Counted 100
[2019-12-18] MEDS ORDERED: SODIUM CHLORIDE 0.9% 1,000 ML IV PRN (08:12)
[2019-12-18] MEDS: LINACLOTIDE 145 MCG CAPSULE PO SCH (08:15)
[2019-12-18] MEDS: FUROSEMIDE 20 MG/2 ML VIAL IV SCH (09:26)
[2019-12-18] MEDS: SPIRONOLACTONE 25 MG TABLET PO SCH (09:28)
[2019-12-18] MEDS: FILGRASTIM-SNDZ 300 MCG/0.5 ML SYRINGE SUBCUT SCH (09:28)
[2019-12-18] MEDS: MULTIVITAMIN (BEROCCA) TABLET PO SCH (09:37)
[2019-12-18] MEDS: carvediloL 6.25 MG TABLET PO SCH (09:37)
[2019-12-18 10:39] LABS: Bacteria,Urine Occasional /HPF (Few); Bilirubin,Urine Negative (Negative); Blood, Urine Negative (Negative); Glucose,Urine (UA) Negative (Negative); Ketones,Urine Negative (Negative); Mucus,Urine Occasional /LPF (Occasional); Nitrite,Urine Negative (Negative); Protein,Urine Negative; RBC,Urine 1 /HPF (0-4); Squamous Epithelial Cell,Urine Occasional /HPF (0-10); Urine Appearance CLEAR (Clear); Urine Color Yellow (Yellow); Urine Specific Gravity 1.004 (1.001-1.035); Urine Urobilinogen < 2.0 EU/DL (0.2-1.0); WBC,Urine 1 /HPF (0-6)
[2019-12-18] MEDS: PANTOPRAZOLE 40 MG TABLET PO SCH (11:23)
[2019-12-18] MEDS ORDERED: POTASSIUM CHLORIDE 20 MEQ TABLET PO ONE (12:02)
[2019-12-18] MEDS ORDERED: PHENAZOPYRIDINE 95 MG TABLET PO ONE (13:28)
[2019-12-18] MEDS ORDERED: fentaNYL 25 MCG/HR PATCH TRANSDERM SCH (17:00)
[2019-12-18] MEDS: PHENAZOPYRIDINE 95 MG TABLET PO SCH (17:42)
[2019-12-18] MEDS: fentaNYL 100 MCG/HR PATCH TRANSDERM SCH (17:42)
[2019-12-18] MEDS: DOCUSATE SODIUM 100 MG CAPSULE PO SCH (20:12)
[2019-12-18] MEDS: PROMETHAZINE INJ 25 MG in SODIUM CHLORIDE 0.9% 50 ML IV PRN (20:12)
[2019-12-18] MEDS: POLYETHYLENE GLYCOL POWDER 17 GM PACK PO SCH (20:12)
[2019-12-19] MEDS: HYDROmorphone 2 MG/1 ML VIAL IV PRN ×5 (00:47→23:25)
[2019-12-19] MEDS: LINACLOTIDE 145 MCG CAPSULE PO SCH (06:35)
[2019-12-19] MEDS: PHENAZOPYRIDINE 95 MG TABLET PO SCH ×2 (08:44→18:43)
[2019-12-19] MEDS: MULTIVITAMIN (BEROCCA) TABLET PO SCH (08:45)
[2019-12-19] MEDS: DOCUSATE SODIUM 100 MG CAPSULE PO SCH (08:45)
[2019-12-19] MEDS: carvediloL 6.25 MG TABLET PO SCH (08:45)
[2019-12-19] MEDS: PANTOPRAZOLE 40 MG TABLET PO SCH (08:45)
[2019-12-19] MEDS: FUROSEMIDE 20 MG/2 ML VIAL IV SCH (08:45)
[2019-12-19] MEDS: FILGRASTIM-SNDZ 300 MCG/0.5 ML SYRINGE SUBCUT SCH (08:59)
[2019-12-19] MEDS ORDERED: SPIRONOLACTONE 25 MG TABLET PO SCH (09:00)
[2019-12-19] MEDS: PROMETHAZINE INJ 25 MG in SODIUM CHLORIDE 0.9% 50 ML IV PRN (09:25)
[2019-12-19 11:32] LABS: Eosinophils % 1.4 % (0.00-10.9); Immature Granulocytes % 11.6 %; Immature Granulocytes Absolute 0.08 #; Lymphocytes # 0.2 10*3/uL (1.4-4.0); Lymphocytes % 33.3 % (21.3-54.2); Mean Corpuscular HGB Conc 32.1 GM/DL (32-36); Mean Corpuscular Volume 99.3 FL (87-102); Monocytes % 2.9 % (1.7-12.7); Neutrophils % 50.8 % (38.7-73.9); Red Blood Count 2.82 MC/CUMM (3.8-5.5); Red Cell Distribution Width 19.5 % (9.3-17.3)
[2019-12-19] MEDS: POLYETHYLENE GLYCOL POWDER 17 GM PACK PO SCH (11:33)
[2019-12-19 11:34] LABS: Platelet Count 36 T/CUMM (130-400); White Blood Count 0.7 T/CUMM (4-12)
[2019-12-19] MEDS: ONDANSETRON 4 MG/2 ML VIAL IV PRN (11:39)
[2019-12-19 11:49] LABS: Albumin 2.4 G/DL (3.4-5.0); Calcium 9.5 MG/DL (8.5-10.1); Total Protein 6.7 G/DL (6.4-8.3)
[2019-12-19 11:51] LABS: Bilirubin,Total 12.9 MG/DL (0.2-1.0)
[2019-12-19 12:03] LABS: Atypical Lymphocytes Few; Band Neutrophils 5 % (0-10); Eosinophils 1 % (0-10); Hypochromasia 2+; Lymphocytes 37 % (20-55); Microcytosis Slight; Platelet Estimate Decreased; Segmented Neutrophils 54 % (50-85); Total Cells Counted 100
[2019-12-19] MEDS ORDERED: POTASSIUM CHLORIDE 20 MEQ TABLET PO ONE (13:09)
[2019-12-19 17:06] LABS: Eosinophils % 1.5 % (0.00-10.9); Hemoglobin 7.7 GM/DL (12.0-16.0); Immature Granulocytes % 12.3 %; Immature Granulocytes Absolute 0.08 #; Lymphocytes # 0.3 10*3/uL (1.4-4.0); Mean Corpuscular HGB Conc 32.1 GM/DL (32-36); Mean Corpuscular Volume 99.6 FL (87-102); Mean Platelet Volume 13.4 FL (9.6-12.0); Monocytes % 4.6 % (1.7-12.7); Neutrophils % 41.6 % (38.7-73.9); Red Blood Count 2.41 MC/CUMM (3.8-5.5); Red Cell Distribution Width 19.6 % (9.3-17.3)
[2019-12-19 17:09] LABS: Platelet Count 34 T/CUMM (130-400); White Blood Count 0.7 T/CUMM (4-12)
[2019-12-19 18:10] LABS: Atypical Lymphocytes Few; Band Neutrophils 1 % (0-10); Eosinophils 1 % (0-10); Hypochromasia 2+; Lymphocytes 43 % (20-55); Microcytosis 1+; Platelet Estimate Decreased; Segmented Neutrophils 48 % (50-85); Total Cells Counted 100
[2019-12-19] MEDS ORDERED: ursodioL 300 MG CAPSULE PO SCH (21:00)
[2019-12-19] MEDS: fentaNYL 100 MCG/HR PATCH TRANSDERM SCH (23:23)
[2019-12-19] MEDS: fentaNYL 25 MCG/HR PATCH TRANSDERM SCH (23:24)
[2019-12-19] MEDS: ALPRAZolam 0.25 MG TABLET PO PRN (23:25)
[2019-12-20] MEDS: POLYETHYLENE GLYCOL POWDER 17 GM PACK PO SCH ×3 (04:44→21:00)
[2019-12-20] MEDS: DOCUSATE SODIUM 100 MG CAPSULE PO SCH ×3 (04:44→22:15)
[2019-12-20] MEDS: SPIRONOLACTONE 25 MG TABLET PO SCH ×3 (04:44→22:15)
[2019-12-20] MEDS: HYDROmorphone 2 MG/1 ML VIAL IV PRN ×3 (04:46→23:11)
[2019-12-20 05:59] LABS: Basophils % 1.8 % (0.0-0.8); Eosinophils % 1.8 % (0.00-10.9); Hematocrit 25.1 VOL% (35.7-47.0); Hemoglobin 7.9 GM/DL (12.0-16.0); Immature Granulocytes % 10.7 %; Immature Granulocytes Absolute 0.06 #; Lymphocytes # 0.3 10*3/uL (1.4-4.0); Mean Corpuscular HGB Conc 31.5 GM/DL (32-36); Mean Corpuscular Volume 99.2 FL (87-102); Monocytes % 5.4 % (1.7-12.7); Neutrophils % 30.3 % (38.7-73.9); Red Blood Count 2.53 MC/CUMM (3.8-5.5); Red Cell Distribution Width 19.5 % (9.3-17.3)
[2019-12-20 06:18] LABS: White Blood Count 0.6 T/CUMM (4-12)
[2019-12-20 06:19] LABS: Platelet Count 24 T/CUMM (130-400)
[2019-12-20 06:34] LABS: Atypical Lymphocytes Few; Band Neutrophils 1 % (0-10); Hypochromasia 1+; Lymphocytes 52 % (20-55); Microcytosis 1+; Nucleated Red Blood Cells 1 (0-5); Ovalocytes Slight; Platelet Estimate Decreased; Segmented Neutrophils 44 % (50-85); Total Cells Counted 100
[2019-12-20] MEDS: LINACLOTIDE 145 MCG CAPSULE PO SCH (06:45)
[2019-12-20 06:51] LABS: Bilirubin,Direct 9.37 MG/DL (0.0-0.20); Bilirubin,Indirect 1.9 MG/DL (0.0-1.0); Bilirubin,Total 11.3 MG/DL (0.2-1.0); Total Protein 5.8 G/DL (6.4-8.3)
[2019-12-20 06:56] LABS: Bilirubin,Total 11.3 MG/DL (0.2-1.0); Calcium 9.4 MG/DL (8.5-10.1); Total Protein 5.7 G/DL (6.4-8.3)
[2019-12-20] MEDS ORDERED: SODIUM CHLORIDE 0.9% 1,000 ML IV PRN (08:09)
[2019-12-20] MEDS: carvediloL 6.25 MG TABLET PO SCH (09:25)
[2019-12-20] MEDS: MULTIVITAMIN (BEROCCA) TABLET PO SCH (09:28)
[2019-12-20] MEDS: PHENAZOPYRIDINE 95 MG TABLET PO SCH ×2 (09:42→18:04)
[2019-12-20] MEDS: PANTOPRAZOLE 40 MG TABLET PO SCH (09:43)
[2019-12-20] MEDS: POTASSIUM CHLORIDE 20 MEQ TABLET PO SCH (09:44)
[2019-12-20] MEDS: FUROSEMIDE 20 MG/2 ML VIAL IV SCH (10:13)
[2019-12-20] MEDS: FILGRASTIM-SNDZ 300 MCG/0.5 ML SYRINGE SUBCUT SCH (10:16)
[2019-12-20] MEDS: ALPRAZolam 0.25 MG TABLET PO PRN ×2 (13:30→21:00)
[2019-12-20] MEDS: TEMAZEPAM 7.5 MG CAPSULE PO SCH (22:15)
[2019-12-21 03:53] LABS: Eosinophils % 1.8 % (0.00-10.9); Hematocrit 24.7 VOL% (35.7-47.0); Hemoglobin 7.9 GM/DL (12.0-16.0); Immature Granulocytes % 9.1 %; Immature Granulocytes Absolute 0.05 #; Lymphocytes # 0.3 10*3/uL (1.4-4.0); Lymphocytes % 47.3 % (21.3-54.2); Mean Corpuscular Volume 99.2 FL (87-102); Monocytes % 12.7 % (1.7-12.7); Neutrophils % 29.1 % (38.7-73.9); Red Blood Count 2.49 MC/CUMM (3.8-5.5); Red Cell Distribution Width 19.2 % (9.3-17.3)
[2019-12-21 03:55] LABS: Platelet Count 35 T/CUMM (130-400); White Blood Count 0.6 T/CUMM (4-12)
[2019-12-21 04:22] LABS: Albumin 2.1 G/DL (3.4-5.0); Bilirubin,Total 11.5 MG/DL (0.2-1.0); Calcium 9.3 MG/DL (8.5-10.1); Total Protein 5.8 G/DL (6.4-8.3)
[2019-12-21 04:48] LABS: Band Neutrophils 2 % (0-10); Eosinophils 2 % (0-10); Hypochromasia 2+; Lymphocytes 53 % (20-55); Nucleated Red Blood Cells 1 (0-5); Platelet Estimate Decreased; Segmented Neutrophils 33 % (50-85); Total Cells Counted 100
[2019-12-21 04:49] LABS: Atypical Lymphocytes Few; Microcytosis 1+
[2019-12-21] MEDS ORDERED: ALCOHOL DEHYDRATED NERVEBLOCK ONE (06:00)
[2019-12-21] MEDS: LINACLOTIDE 145 MCG CAPSULE PO SCH (08:25)
[2019-12-21] MEDS: carvediloL 6.25 MG TABLET PO SCH (08:27)
[2019-12-21] MEDS: POTASSIUM CHLORIDE 20 MEQ TABLET PO SCH (08:28)
[2019-12-21] MEDS: MULTIVITAMIN (BEROCCA) TABLET PO SCH (08:28)
[2019-12-21] MEDS: SPIRONOLACTONE 25 MG TABLET PO SCH ×2 (08:29→20:49)
[2019-12-21] MEDS: PHENAZOPYRIDINE 95 MG TABLET PO SCH ×2 (08:29→17:41)
[2019-12-21] MEDS: DOCUSATE SODIUM 100 MG CAPSULE PO SCH ×2 (08:30→20:49)
[2019-12-21] MEDS: FILGRASTIM-SNDZ 300 MCG/0.5 ML SYRINGE SUBCUT SCH (08:31)
[2019-12-21] MEDS: POLYETHYLENE GLYCOL POWDER 17 GM PACK PO SCH ×2 (08:31→20:49)
[2019-12-21] MEDS: PANTOPRAZOLE 40 MG TABLET PO SCH (11:52)
[2019-12-21] MEDS: FUROSEMIDE 20 MG/2 ML VIAL IV SCH (12:26)
[2019-12-21] MEDS: ALPRAZolam 0.25 MG TABLET PO PRN ×2 (14:25→20:48)
[2019-12-21] MEDS: HYDROmorphone 2 MG/1 ML VIAL IV PRN ×2 (20:48→23:18)
[2019-12-21] MEDS: ONDANSETRON 4 MG/2 ML VIAL IV PRN (20:48)
[2019-12-21] MEDS: TEMAZEPAM 7.5 MG CAPSULE PO SCH (20:49)
[2019-12-22 05:26] LABS: Basophils % 1.1 % (0.0-0.8); Eosinophils % 1.1 % (0.00-10.9); Hematocrit 24.2 VOL% (35.7-47.0); Hemoglobin 7.5 GM/DL (12.0-16.0); Immature Granulocytes % 2.1 %; Immature Granulocytes Absolute 0.02 #; Lymphocytes # 0.3 10*3/uL (1.4-4.0); Lymphocytes % 33.7 % (21.3-54.2); Mean Corpuscular Volume 98.8 FL (87-102); Mean Platelet Volume 13.2 FL (9.6-12.0); Monocytes % 11.6 % (1.7-12.7); Neutrophils % 50.4 % (38.7-73.9); Red Blood Count 2.45 MC/CUMM (3.8-5.5); Red Cell Distribution Width 19.3 % (9.3-17.3)
[2019-12-22 05:28] LABS: Platelet Count 30 T/CUMM (130-400)
[2019-12-22 05:46] LABS: Osmolality,Calculated 270.1 MOS/KG (273-304); Total Protein 5.7 G/DL (6.4-8.3)
[2019-12-22 05:47] LABS: Atypical Lymphocytes Few; Band Neutrophils 1 % (0-10); Hypochromasia 2+; Lymphocytes 46 % (20-55); Microcytosis Slight; Platelet Estimate Decreased; Segmented Neutrophils 44 % (50-85); Total Cells Counted 100
[2019-12-22 05:48] LABS: Ovalocytes Slight
[2019-12-22] MEDS: HYDROmorphone 2 MG TABLET PO PRN (06:39)
[2019-12-22] MEDS: LINACLOTIDE 145 MCG CAPSULE PO SCH (06:39)
[2019-12-22 06:48] LABS: Bilirubin,Total 12.5 MG/DL (0.2-1.0)
[2019-12-22] MEDS ORDERED: POTASSIUM CHLORIDE 20 MEQ TABLET PO PRN (07:58)
[2019-12-22] MEDS: POTASSIUM CHLORIDE 20 MEQ TABLET PO SCH (08:48)
[2019-12-22] MEDS: MULTIVITAMIN (BEROCCA) TABLET PO SCH (08:48)
[2019-12-22] MEDS: POLYETHYLENE GLYCOL POWDER 17 GM PACK PO SCH ×2 (08:48→20:09)
[2019-12-22] MEDS: fentaNYL 100 MCG/HR PATCH TRANSDERM SCH (08:48)
[2019-12-22] MEDS: carvediloL 6.25 MG TABLET PO SCH (08:48)
[2019-12-22] MEDS: fentaNYL 25 MCG/HR PATCH TRANSDERM SCH (08:49)
[2019-12-22] MEDS: SPIRONOLACTONE 25 MG TABLET PO SCH (08:50)
[2019-12-22] MEDS: FILGRASTIM-SNDZ 300 MCG/0.5 ML SYRINGE SUBCUT SCH (08:50)
[2019-12-22] MEDS: FUROSEMIDE 20 MG/2 ML VIAL IV SCH (08:50)
[2019-12-22] MEDS: PHENAZOPYRIDINE 95 MG TABLET PO SCH ×2 (08:50→16:02)
[2019-12-22] MEDS: DOCUSATE SODIUM 100 MG CAPSULE PO SCH ×2 (08:51→20:09)
[2019-12-22] MEDS: PANTOPRAZOLE 40 MG TABLET PO SCH (08:51)
[2019-12-22] MEDS: HYDROmorphone 2 MG/1 ML VIAL IV PRN ×2 (15:51→21:07)
[2019-12-22] MEDS: POTASSIUM CHLORIDE RIDER 20 MEQ in PREMIX 1 EACH IV PRN ×2 (15:52→17:56)
[2019-12-22] MEDS: TEMAZEPAM 7.5 MG CAPSULE PO SCH (20:09)
[2019-12-22] MEDS: ALPRAZolam 0.25 MG TABLET PO PRN (21:07)
[2019-12-23 06:19] LABS: Basophils % 0.7 % (0.0-0.8); Hematocrit 22.8 VOL% (35.7-47.0); Hemoglobin 7.5 GM/DL (12.0-16.0); Immature Granulocytes % 15.2 %; Immature Granulocytes Absolute 0.21 #; Lymphocytes # 0.4 10*3/uL (1.4-4.0); Lymphocytes % 25.4 % (21.3-54.2); Mean Corpuscular HGB Conc 32.9 GM/DL (32-36); Mean Corpuscular Volume 97.9 FL (87-102); Monocytes % 9.4 % (1.7-12.7); NRBC # 0.04 10*3/uL; Neutrophils % 49.3 % (38.7-73.9); Red Blood Count 2.33 MC/CUMM (3.8-5.5); Red Cell Distribution Width 19.4 % (9.3-17.3); White Blood Count 1.4 T/CUMM (4-12)
[2019-12-23] MEDS: LINACLOTIDE 145 MCG CAPSULE PO SCH (06:22)
[2019-12-23 06:26] LABS: Platelet Count 13 T/CUMM (130-400)
[2019-12-23] MEDS: HYDROmorphone 2 MG/1 ML VIAL IV PRN ×4 (06:34→23:33)
[2019-12-23 06:43] LABS: Albumin 1.8 G/DL (3.4-5.0); Calcium 9.3 MG/DL (8.5-10.1); Osmolality,Calculated 268.2 MOS/KG (273-304); Total Protein 5.4 G/DL (6.4-8.3)
[2019-12-23 06:44] LABS: Bilirubin,Total 13.1 MG/DL (0.2-1.0)
[2019-12-23 06:56] LABS: Band Neutrophils 2 % (0-10); Lymphocytes 29 % (20-55); Nucleated Red Blood Cells 6 (0-5); Segmented Neutrophils 57 % (50-85); Total Cells Counted 100
[2019-12-23 06:57] LABS: Anisocytosis 1+; Hypochromasia 2+; Microcytosis 1+
[2019-12-23 06:58] LABS: Target Cells Slight
[2019-12-23] MEDS ORDERED: SODIUM CHLORIDE 0.9% 1,000 ML IV PRN (07:20)
[2019-12-23] MEDS: MULTIVITAMIN (BEROCCA) TABLET PO SCH (08:47)
[2019-12-23] MEDS: POLYETHYLENE GLYCOL POWDER 17 GM PACK PO SCH ×2 (08:47→20:34)
[2019-12-23] MEDS: POTASSIUM CHLORIDE 20 MEQ TABLET PO SCH (08:47)
[2019-12-23] MEDS: carvediloL 6.25 MG TABLET PO SCH (08:47)
[2019-12-23] MEDS: PHENAZOPYRIDINE 95 MG TABLET PO SCH ×2 (08:48→16:09)
[2019-12-23] MEDS: FUROSEMIDE 20 MG/2 ML VIAL IV SCH (08:49)
[2019-12-23] MEDS: DOCUSATE SODIUM 100 MG CAPSULE PO SCH ×2 (08:49→20:34)
[2019-12-23] MEDS: FILGRASTIM-SNDZ 300 MCG/0.5 ML SYRINGE SUBCUT SCH (08:49)
[2019-12-23] MEDS: PANTOPRAZOLE 40 MG TABLET PO SCH (08:50)
[2019-12-23] MEDS: ALPRAZolam 0.25 MG TABLET PO PRN ×2 (10:22→20:31)
[2019-12-23] MEDS: ONDANSETRON 4 MG/2 ML VIAL IV PRN (20:33)
[2019-12-23] MEDS: TEMAZEPAM 7.5 MG CAPSULE PO SCH (20:35)
[2019-12-24 05:47] LABS: Basophils % 1.3 % (0.0-0.8); Hematocrit 26.2 VOL% (35.7-47.0); Hemoglobin 8.5 GM/DL (12.0-16.0); Immature Granulocytes % 13.5 %; Lymphocytes # 0.4 10*3/uL (1.4-4.0); Lymphocytes % 18.4 % (21.3-54.2); Mean Corpuscular HGB Conc 32.4 GM/DL (32-36); Mean Corpuscular Volume 96.3 FL (87-102); Mean Platelet Volume 12.9 FL (9.6-12.0); Monocytes % 10.3 % (1.7-12.7); NRBC # 0.05 10*3/uL; Neutrophils % 56.5 % (38.7-73.9); Red Blood Count 2.72 MC/CUMM (3.8-5.5); Red Cell Distribution Width 19.1 % (9.3-17.3)
[2019-12-24 05:48] LABS: White Blood Count 2.2 T/CUMM (4-12)
[2019-12-24 05:49] LABS: Platelet Count 54 T/CUMM (130-400)
[2019-12-24 06:11] LABS: Calcium 9.5 MG/DL (8.5-10.1); Osmolality,Calculated 270.1 MOS/KG (273-304); Total Protein 5.7 G/DL (6.4-8.3)
[2019-12-24] MEDS: HYDROmorphone 2 MG TABLET PO PRN (06:13)
[2019-12-24 06:27] LABS: Bilirubin,Total 15.6 MG/DL (0.2-1.0)
[2019-12-24 06:33] LABS: Eosinophils 1 % (0-10); Hypochromasia 1+; Lymphocytes 21 % (20-55); Myelocytes 1 %; Nucleated Red Blood Cells 3 (0-5); Platelet Estimate Decreased; Segmented Neutrophils 68 % (50-85); Total Cells Counted 100
[2019-12-24] MEDS: LINACLOTIDE 145 MCG CAPSULE PO SCH (06:36)
[2019-12-24] MEDS: POLYETHYLENE GLYCOL POWDER 17 GM PACK PO SCH ×2 (09:16→20:27)
[2019-12-24] MEDS: POTASSIUM CHLORIDE 20 MEQ TABLET PO SCH (09:17)
[2019-12-24] MEDS: DOCUSATE SODIUM 100 MG CAPSULE PO SCH ×2 (09:18→20:27)
[2019-12-24] MEDS: carvediloL 6.25 MG TABLET PO SCH (09:18)
[2019-12-24] MEDS: MULTIVITAMIN (BEROCCA) TABLET PO SCH (09:18)
[2019-12-24] MEDS: PANTOPRAZOLE 40 MG TABLET PO SCH (09:18)
[2019-12-24] MEDS: PHENAZOPYRIDINE 95 MG TABLET PO SCH ×2 (09:19→17:16)
[2019-12-24] MEDS: FILGRASTIM-SNDZ 300 MCG/0.5 ML SYRINGE SUBCUT SCH (09:19)
[2019-12-24] MEDS: FUROSEMIDE 20 MG/2 ML VIAL IV SCH (09:20)
[2019-12-24] MEDS: ONDANSETRON 4 MG/2 ML VIAL IV PRN (10:16)
[2019-12-24] MEDS: HYDROmorphone 2 MG/1 ML VIAL IV PRN ×2 (14:04→20:29)
[2019-12-24] MEDS: PROMETHAZINE INJ 25 MG in SODIUM CHLORIDE 0.9% 50 ML IV PRN (17:33)
[2019-12-24] MEDS: TEMAZEPAM 7.5 MG CAPSULE PO SCH (20:28)
[2019-12-24] MEDS: ALPRAZolam 0.25 MG TABLET PO PRN (20:29)
[2019-12-25 04:01] LABS: Basophils % 0.7 % (0.0-0.8); Hematocrit 26.3 VOL% (35.7-47.0); Hemoglobin 8.6 GM/DL (12.0-16.0); Immature Granulocytes % 8.2 %; Immature Granulocytes Absolute 0.22 #; Lymphocytes # 0.4 10*3/uL (1.4-4.0); Lymphocytes % 16.4 % (21.3-54.2); Mean Corpuscular HGB Conc 32.7 GM/DL (32-36); Mean Platelet Volume 13.1 FL (9.6-12.0); Monocytes % 13.8 % (1.7-12.7); NRBC # 0.06 10*3/uL; Neutrophils % 60.9 % (38.7-73.9); Red Blood Count 2.74 MC/CUMM (3.8-5.5); Red Cell Distribution Width 19.3 % (9.3-17.3); White Blood Count 2.7 T/CUMM (4-12)
[2019-12-25 04:15] LABS: Platelet Count 41 T/CUMM (130-400)
[2019-12-25 04:29] LABS: Albumin 1.7 G/DL (3.4-5.0); Calcium 9.1 MG/DL (8.5-10.1); Osmolality,Calculated 272.8 MOS/KG (273-304); Total Protein 5.3 G/DL (6.4-8.3)
[2019-12-25 04:30] LABS: Bilirubin,Total 15.4 MG/DL (0.2-1.0)
[2019-12-25 04:31] LABS: Band Neutrophils 3 % (0-10); Hypochromasia 2+; Lymphocytes 16 % (20-55); Nucleated Red Blood Cells 1 (0-5); Platelet Estimate Decreased; Segmented Neutrophils 69 % (50-85); Total Cells Counted 100
[2019-12-25 04:32] LABS: Microcytosis Slight
[2019-12-25] MEDS: HYDROmorphone 2 MG/1 ML VIAL IV PRN ×3 (06:37→23:51)
[2019-12-25] MEDS: LINACLOTIDE 145 MCG CAPSULE PO SCH (06:41)
[2019-12-25] MEDS: carvediloL 6.25 MG TABLET PO SCH (09:30)
[2019-12-25] MEDS: DOCUSATE SODIUM 100 MG CAPSULE PO SCH (09:31)
[2019-12-25] MEDS: POTASSIUM CHLORIDE 20 MEQ TABLET PO SCH (09:34)
[2019-12-25] MEDS: PHENAZOPYRIDINE 95 MG TABLET PO SCH ×2 (09:34→16:01)
[2019-12-25] MEDS: MULTIVITAMIN (BEROCCA) TABLET PO SCH (09:35)
[2019-12-25] MEDS: fentaNYL 25 MCG/HR PATCH TRANSDERM SCH (09:35)
[2019-12-25] MEDS: FUROSEMIDE 20 MG/2 ML VIAL IV SCH (09:35)
[2019-12-25] MEDS: fentaNYL 100 MCG/HR PATCH TRANSDERM SCH (09:35)
[2019-12-25] MEDS: POLYETHYLENE GLYCOL POWDER 17 GM PACK PO SCH ×2 (09:35→21:13)
[2019-12-25] MEDS: FILGRASTIM-SNDZ 300 MCG/0.5 ML SYRINGE SUBCUT SCH (09:35)
[2019-12-25] MEDS: PANTOPRAZOLE 40 MG TABLET PO SCH (09:36)
[2019-12-25] MEDS: PROMETHAZINE INJ 25 MG in SODIUM CHLORIDE 0.9% 50 ML IV PRN (23:51)
[2019-12-26] MEDS: DOCUSATE SODIUM 100 MG CAPSULE PO SCH ×3 (03:35→21:59)
[2019-12-26] MEDS: TEMAZEPAM 7.5 MG CAPSULE PO SCH ×2 (03:35→21:59)
[2019-12-26 05:05] LABS: Basophils % 0.8 % (0.0-0.8); Hematocrit 26.4 VOL% (35.7-47.0); Hemoglobin 8.7 GM/DL (12.0-16.0); Immature Granulocytes % 13.6 %; Lymphocytes # 0.5 10*3/uL (1.4-4.0); Lymphocytes % 14.4 % (21.3-54.2); Mean Corpuscular Volume 96.4 FL (87-102); Mean Platelet Volume 12.7 FL (9.6-12.0); Monocytes % 13.9 % (1.7-12.7); NRBC # 0.05 10*3/uL; Neutrophils % 57.3 % (38.7-73.9); Red Blood Count 2.74 MC/CUMM (3.8-5.5); Red Cell Distribution Width 19.2 % (9.3-17.3); White Blood Count 3.7 T/CUMM (4-12)
[2019-12-26 05:27] LABS: Platelet Count 30 T/CUMM (130-400)
[2019-12-26 05:35] LABS: Band Neutrophils 5 % (0-10); Hypochromasia 1+; Lymphocytes 23 % (20-55); Microcytosis 1+; Nucleated Red Blood Cells 3 (0-5); Platelet Estimate Decreased; Segmented Neutrophils 59 % (50-85); Total Cells Counted 100
[2019-12-26 05:45] LABS: Albumin 1.8 G/DL (3.4-5.0); Calcium 9.2 MG/DL (8.5-10.1); Osmolality,Calculated 268.1 MOS/KG (273-304); Total Protein 5.3 G/DL (6.4-8.3)
[2019-12-26 05:46] LABS: Bilirubin,Total 16.8 MG/DL (0.2-1.0)
[2019-12-26] MEDS: LINACLOTIDE 145 MCG CAPSULE PO SCH (06:32)
[2019-12-26] MEDS ORDERED: MAGNESIUM SULF RIDER 2 GM in PREMIX 1 EACH IV PRN (07:34)
[2019-12-26] MEDS ORDERED: MAGNESIUM SULF RIDER 4 GM in PREMIX 1 EACH IV PRN (07:34)
[2019-12-26] MEDS ORDERED: POTASSIUM CHLORIDE RIDER 20 MEQ in PREMIX 1 EACH IV PRN (07:34)
[2019-12-26] MEDS ORDERED: POTASSIUM CHLORIDE RIDER 10 MEQ in PREMIX 1 EACH IV PRN (07:34)
[2019-12-26] MEDS: POLYETHYLENE GLYCOL POWDER 17 GM PACK PO SCH ×2 (08:58→21:59)
[2019-12-26] MEDS: FILGRASTIM-SNDZ 300 MCG/0.5 ML SYRINGE SUBCUT SCH (08:58)
[2019-12-26] MEDS: POTASSIUM CHLORIDE 20 MEQ TABLET PO SCH (08:58)
[2019-12-26] MEDS: FUROSEMIDE 20 MG/2 ML VIAL IV SCH (08:58)
[2019-12-26] MEDS: MULTIVITAMIN (BEROCCA) TABLET PO SCH (08:58)
[2019-12-26] MEDS: carvediloL 6.25 MG TABLET PO SCH (08:58)
[2019-12-26] MEDS: PANTOPRAZOLE 40 MG TABLET PO SCH (09:00)
[2019-12-26] MEDS: PHENAZOPYRIDINE 95 MG TABLET PO SCH ×2 (09:00→17:11)
[2019-12-26] MEDS: POTASSIUM CHLORIDE RIDER 20 MEQ in PREMIX 1 EACH IV PRN ×2 (11:34→15:33)
[2019-12-26] MEDS: ONDANSETRON 4 MG/2 ML VIAL IV PRN (13:45)
[2019-12-26] MEDS: HYDROmorphone 2 MG/1 ML VIAL IV PRN (13:46)
[2019-12-26] MEDS: ALPRAZolam 0.25 MG TABLET PO PRN (13:46)
[2019-12-26] MEDS: PROMETHAZINE INJ 25 MG in SODIUM CHLORIDE 0.9% 50 ML IV PRN (17:10)
[2019-12-27] MEDS: POTASSIUM CHLORIDE RIDER 10 MEQ in PREMIX 1 EACH IV PRN (00:20)
[2019-12-27] MEDS: ONDANSETRON 4 MG/2 ML VIAL IV PRN (00:21)
[2019-12-27] MEDS: HYDROmorphone 2 MG/1 ML VIAL IV PRN ×3 (00:21→23:24)
[2019-12-27] MEDS: LINACLOTIDE 145 MCG CAPSULE PO SCH ×2 (06:13→07:50)
[2019-12-27 06:18] LABS: Basophils # 0.1 10*3/uL (0.0-0.2); Eosinophils % 0.2 % (0.00-10.9); Hematocrit 27.6 VOL% (35.7-47.0); Hemoglobin 9.1 GM/DL (12.0-16.0); Immature Granulocytes % 9.7 %; Immature Granulocytes Absolute 0.47 #; Lymphocytes # 0.5 10*3/uL (1.4-4.0); Lymphocytes % 9.9 % (21.3-54.2); Mean Corpuscular Volume 95.8 FL (87-102); Mean Platelet Volume 12.6 FL (9.6-12.0); Monocytes % 13.6 % (1.7-12.7); NRBC # 0.05 10*3/uL; Neutrophils % 65.6 % (38.7-73.9); Red Blood Count 2.88 MC/CUMM (3.8-5.5); Red Cell Distribution Width 19.3 % (9.3-17.3); White Blood Count 4.9 T/CUMM (4-12)
[2019-12-27 06:23] LABS: Platelet Count 25 T/CUMM (130-400)
[2019-12-27 06:42] LABS: Band Neutrophils 7 % (0-10); Hypochromasia 2+; Lymphocytes 7 % (20-55); Microcytosis 1+; Nucleated Red Blood Cells 1 (0-5); Segmented Neutrophils 69 % (50-85); Total Cells Counted 100
[2019-12-27 06:43] LABS: Platelet Estimate Decreased
[2019-12-27 06:59] LABS: Albumin 1.8 G/DL (3.4-5.0); Calcium 9.3 MG/DL (8.5-10.1); Osmolality,Calculated 268.2 MOS/KG (273-304); Total Protein 5.5 G/DL (6.4-8.3)
[2019-12-27 07:03] LABS: Bilirubin,Total 17.8 MG/DL (0.2-1.0)
[2019-12-27] MEDS: carvediloL 6.25 MG TABLET PO SCH (09:04)
[2019-12-27] MEDS: POTASSIUM CHLORIDE 20 MEQ TABLET PO SCH (09:04)
[2019-12-27] MEDS: POLYETHYLENE GLYCOL POWDER 17 GM PACK PO SCH (09:04)
[2019-12-27] MEDS: FUROSEMIDE 20 MG/2 ML VIAL IV SCH (09:04)
[2019-12-27] MEDS: DOCUSATE SODIUM 100 MG CAPSULE PO SCH (09:05)
[2019-12-27] MEDS: PHENAZOPYRIDINE 95 MG TABLET PO SCH ×2 (09:05→17:22)
[2019-12-27] MEDS: FILGRASTIM-SNDZ 300 MCG/0.5 ML SYRINGE SUBCUT SCH (09:05)
[2019-12-27] MEDS: PANTOPRAZOLE 40 MG TABLET PO SCH (09:05)
[2019-12-27] MEDS: MULTIVITAMIN (BEROCCA) TABLET PO SCH (09:05)
[2019-12-27] MEDS: PROMETHAZINE INJ 25 MG in SODIUM CHLORIDE 0.9% 50 ML IV PRN ×2 (09:22→16:35)
[2019-12-27] MEDS ORDERED: SODIUM PHOSPHATE ENEMA 133 ML BOTTLE RECTAL PRN (12:47)
[2019-12-27] MEDS: ALPRAZolam 0.25 MG TABLET PO PRN (15:09)
[2019-12-28] MEDS: DOCUSATE SODIUM 100 MG CAPSULE PO SCH ×3 (05:10→20:49)
[2019-12-28] MEDS: POLYETHYLENE GLYCOL POWDER 17 GM PACK PO SCH ×3 (05:10→20:49)
[2019-12-28] MEDS: TEMAZEPAM 7.5 MG CAPSULE PO SCH ×2 (05:10→20:50)
[2019-12-28 05:40] LABS: Basophils # 0.1 10*3/uL (0.0-0.2); Basophils % 1.2 % (0.0-0.8); Hematocrit 26.8 VOL% (35.7-47.0); Hemoglobin 8.8 GM/DL (12.0-16.0); Immature Granulocytes % 10.3 %; Immature Granulocytes Absolute 0.62 #; Lymphocytes # 0.5 10*3/uL (1.4-4.0); Mean Corpuscular HGB Conc 32.8 GM/DL (32-36); Mean Corpuscular Volume 96.8 FL (87-102); Mean Platelet Volume 11.8 FL (9.6-12.0); Monocytes % 11.3 % (1.7-12.7); NRBC # 0.07 10*3/uL; Neutrophils % 68.2 % (38.7-73.9); Red Blood Count 2.77 MC/CUMM (3.8-5.5); Red Cell Distribution Width 19.6 % (9.3-17.3)
[2019-12-28 05:41] LABS: Platelet Count 68 T/CUMM (130-400)
[2019-12-28 06:02] LABS: Hypochromasia Slight; Lymphocytes 11 % (20-55); Nucleated Red Blood Cells 1 (0-5); Platelet Estimate Decreased; Segmented Neutrophils 75 % (50-85); Total Cells Counted 100
[2019-12-28 06:10] LABS: Albumin 1.9 G/DL (3.4-5.0); Calcium 9.4 MG/DL (8.5-10.1); Osmolality,Calculated 268.1 MOS/KG (273-304); Total Protein 5.5 G/DL (6.4-8.3)
[2019-12-28 06:11] LABS: Bilirubin,Total 17.9 MG/DL (0.2-1.0)
[2019-12-28] MEDS: LINACLOTIDE 145 MCG CAPSULE PO SCH (06:55)
[2019-12-28] MEDS: FUROSEMIDE 20 MG/2 ML VIAL IV SCH ×2 (08:52→11:28)
[2019-12-28] MEDS: FILGRASTIM-SNDZ 300 MCG/0.5 ML SYRINGE SUBCUT SCH (08:53)
[2019-12-28] MEDS: POTASSIUM CHLORIDE 20 MEQ TABLET PO SCH (08:53)
[2019-12-28] MEDS: MULTIVITAMIN (BEROCCA) TABLET PO SCH (08:54)
[2019-12-28] MEDS: carvediloL 6.25 MG TABLET PO SCH (08:54)
[2019-12-28] MEDS: fentaNYL 100 MCG/HR PATCH TRANSDERM SCH (08:54)
[2019-12-28] MEDS: fentaNYL 25 MCG/HR PATCH TRANSDERM SCH (08:54)
[2019-12-28] MEDS: PANTOPRAZOLE 40 MG TABLET PO SCH (08:55)
[2019-12-28] MEDS: PHENAZOPYRIDINE 95 MG TABLET PO SCH ×2 (08:55→16:38)
[2019-12-28] MEDS: POTASSIUM CHLORIDE RIDER 20 MEQ in PREMIX 1 EACH IV PRN ×2 (08:58→16:30)
[2019-12-28] MEDS: HYDROmorphone 2 MG/1 ML VIAL IV PRN ×4 (09:08→22:49)
[2019-12-28] MEDS: PROMETHAZINE INJ 25 MG in SODIUM CHLORIDE 0.9% 50 ML IV PRN ×2 (11:22→22:50)
[2019-12-28] MEDS ORDERED: ALCOHOL DEHYDRATED NERVEBLOCK ONE (11:30)
[2019-12-28] MEDS ORDERED: HYDROmorphone 2 MG/1 ML VIAL IV ONE (17:38)
[2019-12-29 05:58] LABS: Basophils # 0.1 10*3/uL (0.0-0.2); Basophils % 0.7 % (0.0-0.8); Hematocrit 27.2 VOL% (35.7-47.0); Immature Granulocytes % 11.7 %; Immature Granulocytes Absolute 1.04 #; Lymphocytes # 0.6 10*3/uL (1.4-4.0); Lymphocytes % 6.8 % (21.3-54.2); Mean Corpuscular HGB Conc 33.1 GM/DL (32-36); Mean Corpuscular Volume 96.5 FL (87-102); Mean Platelet Volume 13.8 FL (9.6-12.0); Monocytes % 11.7 % (1.7-12.7); NRBC # 0.07 10*3/uL; Neutrophils % 69.1 % (38.7-73.9); Platelet Count 58 T/CUMM (130-400); Red Blood Count 2.82 MC/CUMM (3.8-5.5); Red Cell Distribution Width 19.9 % (9.3-17.3); White Blood Count 8.9 T/CUMM (4-12)
[2019-12-29 06:20] LABS: Albumin 1.9 G/DL (3.4-5.0); Calcium 9.3 MG/DL (8.5-10.1); Osmolality,Calculated 267.2 MOS/KG (273-304); Total Protein 5.5 G/DL (6.4-8.3)
[2019-12-29 06:24] LABS: Bilirubin,Total 19.4 MG/DL (0.2-1.0)
[2019-12-29 06:27] LABS: Band Neutrophils 3 % (0-10); Hypochromasia 1+; Lymphocytes 8 % (20-55); Microcytosis 1+; Platelet Estimate Decreased; Segmented Neutrophils 79 % (50-85); Total Cells Counted 100
[2019-12-29] MEDS: LINACLOTIDE 145 MCG CAPSULE PO SCH (06:30)
[2019-12-29] MEDS: HYDROmorphone 2 MG/1 ML VIAL IV PRN ×3 (09:02→20:22)
[2019-12-29] MEDS: PROMETHAZINE INJ 25 MG in SODIUM CHLORIDE 0.9% 50 ML IV PRN (09:11)
[2019-12-29] MEDS: ALPRAZolam 0.25 MG TABLET PO PRN ×2 (09:16→20:23)
[2019-12-29] MEDS: carvediloL 6.25 MG TABLET PO SCH (10:52)
[2019-12-29] MEDS: DOCUSATE SODIUM 100 MG CAPSULE PO SCH ×2 (10:57→20:06)
[2019-12-29] MEDS: PHENAZOPYRIDINE 95 MG TABLET PO SCH ×2 (10:57→17:45)
[2019-12-29] MEDS: MULTIVITAMIN (BEROCCA) TABLET PO SCH (10:57)
[2019-12-29] MEDS: POTASSIUM CHLORIDE 20 MEQ TABLET PO SCH (10:58)
[2019-12-29] MEDS: POLYETHYLENE GLYCOL POWDER 17 GM PACK PO SCH ×2 (10:59→20:06)
[2019-12-29] MEDS: FUROSEMIDE 20 MG/2 ML VIAL IV SCH (10:59)
[2019-12-29] MEDS: PANTOPRAZOLE 40 MG TABLET PO SCH (11:00)
[2019-12-29] MEDS: LACTULOSE 20 GM/30 ML UDCUP PO PRN (17:46)
[2019-12-29] MEDS: TEMAZEPAM 7.5 MG CAPSULE PO SCH (20:06)
[2019-12-30 06:29] LABS: Basophils % 0.5 % (0.0-0.8); Hematocrit 26.3 VOL% (35.7-47.0); Hemoglobin 8.5 GM/DL (12.0-16.0); Immature Granulocytes % 8.1 %; Immature Granulocytes Absolute 0.51 #; Lymphocytes # 0.5 10*3/uL (1.4-4.0); Lymphocytes % 7.9 % (21.3-54.2); Mean Corpuscular HGB Conc 32.3 GM/DL (32-36); Mean Corpuscular Volume 96.7 FL (87-102); Mean Platelet Volume 13.1 FL (9.6-12.0); Monocytes % 14.4 % (1.7-12.7); NRBC # 0.03 10*3/uL; Neutrophils % 69.1 % (38.7-73.9); Platelet Count 45 T/CUMM (130-400); Red Blood Count 2.72 MC/CUMM (3.8-5.5); Red Cell Distribution Width 19.9 % (9.3-17.3); White Blood Count 6.3 T/CUMM (4-12)
[2019-12-30] MEDS: LINACLOTIDE 145 MCG CAPSULE PO SCH (06:31)
[2019-12-30 06:39] LABS: Albumin 1.6 G/DL (3.4-5.0); Calcium 8.5 MG/DL (8.5-10.1); Osmolality,Calculated 273.8 MOS/KG (273-304)
[2019-12-30 06:42] LABS: Bilirubin,Total 18.2 MG/DL (0.2-1.0)
[2019-12-30 09:24] LABS: Band Neutrophils 4 % (0-10); Lymphocytes 11 % (20-55); Metamyelocytes 3 %; Nucleated Red Blood Cells 1 (0-5); Segmented Neutrophils 71 % (50-85); Total Cells Counted 100
[2019-12-30 09:25] LABS: Anisocytosis 1+; Hypochromasia Slight; Macrocytosis 1+; Platelet Estimate Decreased; Polychromasia 2+
[2019-12-30] MEDS: LACTULOSE 20 GM/30 ML UDCUP PO PRN (10:48)
[2019-12-30] MEDS: carvediloL 6.25 MG TABLET PO SCH (10:49)
[2019-12-30] MEDS: FUROSEMIDE 20 MG/2 ML VIAL IV SCH (10:54)
[2019-12-30] MEDS: PHENAZOPYRIDINE 95 MG TABLET PO SCH ×2 (11:11→16:17)
[2019-12-30] MEDS: POTASSIUM CHLORIDE RIDER 10 MEQ in PREMIX 1 EACH IV PRN (11:12)
[2019-12-30] MEDS: HYDROmorphone 2 MG/1 ML VIAL IV PRN ×2 (11:12→22:02)
[2019-12-30] MEDS: POLYETHYLENE GLYCOL POWDER 17 GM PACK PO SCH ×2 (13:14→20:05)
[2019-12-30] MEDS: POTASSIUM CHLORIDE 20 MEQ TABLET PO SCH (13:14)
[2019-12-30] MEDS: PANTOPRAZOLE 40 MG TABLET PO SCH (13:14)
[2019-12-30] MEDS: DOCUSATE SODIUM 100 MG CAPSULE PO SCH ×2 (13:15→20:05)
[2019-12-30] MEDS: MULTIVITAMIN (BEROCCA) TABLET PO SCH (13:15)
[2019-12-30] MEDS: ONDANSETRON 4 MG/2 ML VIAL IV PRN (15:20)
[2019-12-30] MEDS: TEMAZEPAM 7.5 MG CAPSULE PO SCH (20:05)
[2019-12-31] MEDS: LINACLOTIDE 145 MCG CAPSULE PO SCH (06:55)
[2019-12-31 07:08] LABS: Basophils % 0.7 % (0.0-0.8); Hematocrit 25.4 VOL% (35.7-47.0); Hemoglobin 8.3 GM/DL (12.0-16.0); Immature Granulocytes % 9.1 %; Immature Granulocytes Absolute 0.41 #; Lymphocytes # 0.5 10*3/uL (1.4-4.0); Lymphocytes % 10.4 % (21.3-54.2); Mean Corpuscular HGB Conc 32.7 GM/DL (32-36); Mean Corpuscular Volume 95.8 FL (87-102); Monocytes % 14.2 % (1.7-12.7); NRBC # 0.02 10*3/uL; Neutrophils % 65.6 % (38.7-73.9); Red Blood Count 2.65 MC/CUMM (3.8-5.5); Red Cell Distribution Width 20.3 % (9.3-17.3); White Blood Count 4.5 T/CUMM (4-12)
[2019-12-31 07:18] LABS: Platelet Count 39 T/CUMM (130-400)
[2019-12-31 07:33] LABS: Albumin 1.6 G/DL (3.4-5.0); Calcium 9.3 MG/DL (8.5-10.1); Osmolality,Calculated 269.1 MOS/KG (273-304)
[2019-12-31 07:45] LABS: Bilirubin,Total 17.6 MG/DL (0.2-1.0)
[2019-12-31] MEDS: LACTULOSE 20 GM/30 ML UDCUP PO PRN ×2 (09:40→21:20)
[2019-12-31] MEDS: fentaNYL 100 MCG/HR PATCH TRANSDERM SCH (09:40)
[2019-12-31] MEDS: fentaNYL 50 MCG/HR PATCH TRANSDERM SCH ×2 (09:47→10:38)
[2019-12-31] MEDS: DOCUSATE SODIUM 100 MG CAPSULE PO SCH ×2 (10:38→22:20)
[2019-12-31] MEDS: carvediloL 6.25 MG TABLET PO SCH (10:38)
[2019-12-31] MEDS: PHENAZOPYRIDINE 95 MG TABLET PO SCH ×2 (10:38→17:36)
[2019-12-31] MEDS: MULTIVITAMIN (BEROCCA) TABLET PO SCH (10:38)
[2019-12-31] MEDS: PANTOPRAZOLE 40 MG TABLET PO SCH (10:39)
[2019-12-31] MEDS: POTASSIUM CHLORIDE 20 MEQ TABLET PO SCH (10:39)
[2019-12-31] MEDS: POLYETHYLENE GLYCOL POWDER 17 GM PACK PO SCH ×2 (10:39→22:20)
[2019-12-31] MEDS: FUROSEMIDE 20 MG/2 ML VIAL IV SCH (10:39)
[2019-12-31 10:51] LABS: Band Neutrophils 4 % (0-10); Lymphocytes 4 % (20-55); Metamyelocytes 3 %; Myelocytes 2 %; Segmented Neutrophils 77 % (50-85); Total Cells Counted 100
[2019-12-31 10:52] LABS: Hypochromasia 3+; Macrocytosis 1+; Platelet Estimate Decreased; Polychromasia Slight; Stomatocytes Few
[2019-12-31] MEDS: PROMETHAZINE INJ 25 MG in SODIUM CHLORIDE 0.9% 50 ML IV PRN ×2 (14:44→21:19)
[2019-12-31] MEDS: HYDROmorphone 2 MG/1 ML VIAL IV PRN (21:20)
[2019-12-31] MEDS: POTASSIUM CHLORIDE RIDER 20 MEQ in PREMIX 1 EACH IV PRN (21:28)
[2019-12-31] MEDS: TEMAZEPAM 7.5 MG CAPSULE PO SCH (22:20)
[2019-12-31] MEDS: POTASSIUM CHLORIDE RIDER 10 MEQ in PREMIX 1 EACH IV PRN (23:43)
[2020-01-01 06:08] LABS: Basophils % 0.9 % (0.0-0.8); Hematocrit 27.8 VOL% (35.7-47.0); Hemoglobin 9.1 GM/DL (12.0-16.0); Immature Granulocytes % 11.7 %; Immature Granulocytes Absolute 0.54 #; Lymphocytes # 0.5 10*3/uL (1.4-4.0); Lymphocytes % 11.2 % (21.3-54.2); Mean Corpuscular HGB Conc 32.7 GM/DL (32-36); Mean Corpuscular Volume 97.2 FL (87-102); Mean Platelet Volume 14.2 FL (9.6-12.0); Monocytes % 15.8 % (1.7-12.7); NRBC # 0.04 10*3/uL; Neutrophils % 60.4 % (38.7-73.9); Platelet Count 43 T/CUMM (130-400); Red Blood Count 2.86 MC/CUMM (3.8-5.5); Red Cell Distribution Width 20.3 % (9.3-17.3); White Blood Count 4.6 T/CUMM (4-12)
[2020-01-01 06:39] LABS: Albumin 1.7 G/DL (3.4-5.0); Calcium 9.4 MG/DL (8.5-10.1); Osmolality,Calculated 269.1 MOS/KG (273-304); Total Protein 5.3 G/DL (6.4-8.3)
[2020-01-01 06:48] LABS: Bilirubin,Total 18.9 MG/DL (0.2-1.0)
[2020-01-01] MEDS: LINACLOTIDE 145 MCG CAPSULE PO SCH (07:07)
[2020-01-01 07:13] LABS: Band Neutrophils 3 % (0-10); Hypochromasia 1+; Lymphocytes 14 % (20-55); Macrocytosis 1+; Segmented Neutrophils 74 % (50-85); Total Cells Counted 100
[2020-01-01 07:14] LABS: Platelet Estimate Decreased; Polychromasia Slight
[2020-01-01] MEDS: POLYETHYLENE GLYCOL POWDER 17 GM PACK PO SCH ×2 (09:06→20:40)
[2020-01-01] MEDS: MULTIVITAMIN (BEROCCA) TABLET PO SCH (09:06)
[2020-01-01] MEDS: carvediloL 6.25 MG TABLET PO SCH (09:06)
[2020-01-01] MEDS: POTASSIUM CHLORIDE RIDER 20 MEQ in PREMIX 1 EACH IV PRN ×2 (09:07→12:41)
[2020-01-01] MEDS: PHENAZOPYRIDINE 95 MG TABLET PO SCH ×2 (09:11→16:26)
[2020-01-01] MEDS: POTASSIUM CHLORIDE 20 MEQ TABLET PO SCH (09:11)
[2020-01-01] MEDS: DOCUSATE SODIUM 100 MG CAPSULE PO SCH ×2 (09:11→20:40)
[2020-01-01] MEDS: PANTOPRAZOLE 40 MG TABLET PO SCH (09:12)
[2020-01-01] MEDS: FUROSEMIDE 20 MG/2 ML VIAL IV SCH (09:12)
[2020-01-01] MEDS: HYDROmorphone 2 MG TABLET PO PRN (09:32)
[2020-01-01] MEDS: PROMETHAZINE INJ 25 MG in SODIUM CHLORIDE 0.9% 50 ML IV PRN (13:10)
[2020-01-01] MEDS: ALPRAZolam 0.25 MG TABLET PO PRN (13:43)
[2020-01-01] MEDS: TEMAZEPAM 7.5 MG CAPSULE PO SCH (20:45)
[2020-01-01] MEDS: ALPRAZolam 0.25 MG TABLET PO SCH (20:46)
[2020-01-02] MEDS: LINACLOTIDE 145 MCG CAPSULE PO SCH (07:14)
[2020-01-02] MEDS: POTASSIUM CHLORIDE 20 MEQ TABLET PO SCH (08:43)
[2020-01-02] MEDS: carvediloL 6.25 MG TABLET PO SCH (08:43)
[2020-01-02] MEDS: MULTIVITAMIN (BEROCCA) TABLET PO SCH (08:43)
[2020-01-02] MEDS: PHENAZOPYRIDINE 95 MG TABLET PO SCH ×2 (08:44→16:18)
[2020-01-02] MEDS: POLYETHYLENE GLYCOL POWDER 17 GM PACK PO SCH (08:44)
[2020-01-02] MEDS: DOCUSATE SODIUM 100 MG CAPSULE PO SCH (08:44)
[2020-01-02] MEDS: LACTULOSE 20 GM/30 ML UDCUP PO PRN (08:44)
[2020-01-02] MEDS: PANTOPRAZOLE 40 MG TABLET PO SCH (08:44)
[2020-01-02] MEDS: ALPRAZolam 0.25 MG TABLET PO SCH ×2 (08:45→19:36)
[2020-01-02] MEDS: FUROSEMIDE 20 MG/2 ML VIAL IV SCH (08:45)
[2020-01-02 09:18] LABS: Basophils % 0.3 % (0.0-0.8); Hemoglobin 8.7 GM/DL (12.0-16.0); Immature Granulocytes % 10.7 %; Immature Granulocytes Absolute 0.41 #; Lymphocytes # 0.4 10*3/uL (1.4-4.0); Lymphocytes % 10.4 % (21.3-54.2); Mean Corpuscular HGB Conc 32.2 GM/DL (32-36); Mean Corpuscular Volume 97.8 FL (87-102); Monocytes % 14.6 % (1.7-12.7); Red Blood Count 2.76 MC/CUMM (3.8-5.5); Red Cell Distribution Width 20.5 % (9.3-17.3); White Blood Count 3.8 T/CUMM (4-12)
[2020-01-02 09:24] LABS: Platelet Count 27 T/CUMM (130-400)
[2020-01-02 09:35] LABS: Albumin 1.6 G/DL (3.4-5.0); Calcium 9.4 MG/DL (8.5-10.1); Total Protein 5.2 G/DL (6.4-8.3)
[2020-01-02 09:40] LABS: Bilirubin,Total 18.8 MG/DL (0.2-1.0); Lymphocytes 11 % (20-55); Segmented Neutrophils 79 % (50-85); Total Cells Counted 100
[2020-01-02 09:41] LABS: Hypochromasia 1+; Microcytosis Slight; Platelet Estimate Decreased
[2020-01-02] MEDS: HYDROmorphone 2 MG/1 ML VIAL IV PRN (19:35)
[2020-01-03 06:15] LABS: Basophils % 0.3 % (0.0-0.8); Hematocrit 26.7 VOL% (35.7-47.0); Hemoglobin 8.7 GM/DL (12.0-16.0); Immature Granulocytes % 9.5 %; Immature Granulocytes Absolute 0.32 #; Lymphocytes # 0.4 10*3/uL (1.4-4.0); Lymphocytes % 12.8 % (21.3-54.2); Mean Corpuscular HGB Conc 32.6 GM/DL (32-36); Mean Corpuscular Volume 97.4 FL (87-102); Mean Platelet Volume 14.5 FL (9.6-12.0); Monocytes % 16.6 % (1.7-12.7); Neutrophils % 60.8 % (38.7-73.9); Red Blood Count 2.74 MC/CUMM (3.8-5.5); Red Cell Distribution Width 20.4 % (9.3-17.3); White Blood Count 3.4 T/CUMM (4-12)
[2020-01-03 06:17] LABS: Platelet Count 42 T/CUMM (130-400)
[2020-01-03 06:42] LABS: Albumin 1.6 G/DL (3.4-5.0); Calcium 9.4 MG/DL (8.5-10.1); Total Protein 5.2 G/DL (6.4-8.3)
[2020-01-03 06:44] LABS: Bilirubin,Total 18.5 MG/DL (0.2-1.0)
[2020-01-03 06:49] LABS: Band Neutrophils 2 % (0-10); Myelocytes 1 %
[2020-01-03 07:01] LABS: Lymphocytes 13 % (20-55); Metamyelocytes 6 %; Segmented Neutrophils 61 % (50-85); Total Cells Counted 100
[2020-01-03 07:02] LABS: Anisocytosis 2+; Howell-Jolly Bodies 2+; Hypochromasia 2+; Platelet Estimate Decreased; Polychromasia Few; Target Cells 2+
[2020-01-03 07:03] LABS: Giant Platelets Few; Macrocytosis 1+; Microcytosis 1+
[2020-01-03] MEDS: SENNA 8.6 MG TABLET PO SCH ×2 (07:25→21:01)
[2020-01-03] MEDS: DOCUSATE SODIUM 100 MG CAPSULE PO SCH ×3 (07:25→21:00)
[2020-01-03] MEDS: POLYETHYLENE GLYCOL POWDER 17 GM PACK PO SCH ×3 (07:25→21:01)
[2020-01-03] MEDS: TEMAZEPAM 7.5 MG CAPSULE PO SCH ×2 (07:25→21:01)
[2020-01-03] MEDS: LINACLOTIDE 145 MCG CAPSULE PO SCH (07:26)
[2020-01-03] MEDS: ALPRAZolam 0.25 MG TABLET PO SCH ×3 (07:26→20:58)
[2020-01-03] MEDS: PHENAZOPYRIDINE 95 MG TABLET PO SCH ×2 (08:57→17:23)
[2020-01-03] MEDS ORDERED: IMMUNE GLOBULIN 10% 40 GM in PREMIX 1 EACH IV ONE (09:00)
[2020-01-03] MEDS: PANTOPRAZOLE 40 MG TABLET PO SCH (09:01)
[2020-01-03] MEDS: carvediloL 6.25 MG TABLET PO SCH (09:01)
[2020-01-03] MEDS: fentaNYL 100 MCG/HR PATCH TRANSDERM SCH (09:10)
[2020-01-03] MEDS: fentaNYL 50 MCG/HR PATCH TRANSDERM SCH (09:10)
[2020-01-03] MEDS: FUROSEMIDE 20 MG/2 ML VIAL IV SCH (09:11)
[2020-01-03] MEDS: HYDROmorphone 2 MG/1 ML VIAL IV PRN ×4 (10:28→20:57)
[2020-01-03] MEDS: ONDANSETRON 4 MG/2 ML VIAL IV PRN (10:32)
[2020-01-03] MEDS: POTASSIUM CHLORIDE 20 MEQ TABLET PO SCH (11:59)
[2020-01-03] MEDS: MULTIVITAMIN (BEROCCA) TABLET PO SCH (11:59)
[2020-01-03] MEDS: POTASSIUM CHLORIDE RIDER 10 MEQ in PREMIX 1 EACH IV PRN ×2 (15:30→17:52)
[2020-01-04 05:31] LABS: Basophils % 0.8 % (0.0-0.8); Eosinophils % 0.4 % (0.00-10.9); Hematocrit 25.2 VOL% (35.7-47.0); Hemoglobin 8.2 GM/DL (12.0-16.0); Immature Granulocytes % 8.9 %; Immature Granulocytes Absolute 0.22 #; Lymphocytes # 0.3 10*3/uL (1.4-4.0); Mean Corpuscular HGB Conc 32.5 GM/DL (32-36); Mean Corpuscular Volume 97.3 FL (87-102); Monocytes % 14.2 % (1.7-12.7); Neutrophils % 64.7 % (38.7-73.9); Red Blood Count 2.59 MC/CUMM (3.8-5.5); Red Cell Distribution Width 20.5 % (9.3-17.3); White Blood Count 2.5 T/CUMM (4-12)
[2020-01-04 05:34] LABS: Platelet Count 37 T/CUMM (130-400)
[2020-01-04 05:49] LABS: Albumin 1.4 G/DL (3.4-5.0); Calcium 9.2 MG/DL (8.5-10.1); Osmolality,Calculated 271.2 MOS/KG (273-304)
[2020-01-04 05:57] LABS: Bilirubin,Total 17.9 MG/DL (0.2-1.0)
[2020-01-04 06:15] LABS: % Iron Saturation 42.2 % (18-50); Ferritin 2744.7 ng/ml (8-252)
[2020-01-04 06:16] LABS: Band Neutrophils 2 % (0-10); Eosinophils 1 % (0-10); Hypochromasia 1+; Lymphocytes 7 % (20-55); Macrocytosis 1+; Metamyelocytes 1 %; Myelocytes 2 %; Segmented Neutrophils 76 % (50-85); Total Cells Counted 100
[2020-01-04 06:17] LABS: Anisocytosis 1+; Polychromasia Slight; Stomatocytes Few
[2020-01-04] MEDS: LINACLOTIDE 145 MCG CAPSULE PO SCH (06:39)
[2020-01-04] MEDS: HYDROmorphone 2 MG/1 ML VIAL IV PRN ×3 (09:05→21:26)
[2020-01-04] MEDS: ALPRAZolam 0.25 MG TABLET PO SCH ×2 (09:13→21:25)
[2020-01-04] MEDS ORDERED: ALBUTEROL/IPRATROPIUM 3 ML NEB RESP TX PRN (11:33)
[2020-01-04] MEDS ORDERED: ALBUTEROL/IPRATROPIUM 3 ML NEB RESP TX ONE (11:33)
[2020-01-04] MEDS: PANTOPRAZOLE 40 MG TABLET PO SCH (11:49)
[2020-01-04] MEDS: DOCUSATE SODIUM 100 MG CAPSULE PO SCH ×2 (11:49→21:28)
[2020-01-04] MEDS: POLYETHYLENE GLYCOL POWDER 17 GM PACK PO SCH ×2 (11:49→21:28)
[2020-01-04] MEDS: FUROSEMIDE 20 MG/2 ML VIAL IV SCH (11:49)
[2020-01-04] MEDS: POTASSIUM CHLORIDE 20 MEQ TABLET PO SCH (11:49)
[2020-01-04] MEDS: MULTIVITAMIN (BEROCCA) TABLET PO SCH (11:49)
[2020-01-04] MEDS: PHENAZOPYRIDINE 95 MG TABLET PO SCH ×2 (11:50→17:33)
[2020-01-04] MEDS: carvediloL 6.25 MG TABLET PO SCH (11:50)
[2020-01-04] MEDS: POTASSIUM CHLORIDE RIDER 10 MEQ in PREMIX 1 EACH IV PRN ×2 (16:26→17:34)
[2020-01-04] MEDS: SENNA 8.6 MG TABLET PO SCH (21:28)
[2020-01-04] MEDS: TEMAZEPAM 7.5 MG CAPSULE PO SCH (21:28)
[2020-01-05 05:21] LABS: Basophils % 0.4 % (0.0-0.8); Hematocrit 25.7 VOL% (35.7-47.0); Hemoglobin 8.3 GM/DL (12.0-16.0); Immature Granulocytes % 7.3 %; Lymphocytes # 0.3 10*3/uL (1.4-4.0); Lymphocytes % 9.5 % (21.3-54.2); Mean Corpuscular HGB Conc 32.3 GM/DL (32-36); Monocytes % 13.9 % (1.7-12.7); Neutrophils % 68.9 % (38.7-73.9); Red Blood Count 2.65 MC/CUMM (3.8-5.5); Red Cell Distribution Width 20.6 % (9.3-17.3); White Blood Count 2.7 T/CUMM (4-12)
[2020-01-05 05:26] LABS: Platelet Count 39 T/CUMM (130-400)
[2020-01-05 05:44] LABS: Albumin 1.5 G/DL (3.4-5.0); Calcium 9.5 MG/DL (8.5-10.1); Osmolality,Calculated 270.5 MOS/KG (273-304)
[2020-01-05 05:49] LABS: Bilirubin,Total 18.6 MG/DL (0.2-1.0)
[2020-01-05 06:11] LABS: Band Neutrophils 6 % (0-10); Eosinophils 1 % (0-10); Lymphocytes 10 % (20-55); Metamyelocytes 1 %; Myelocytes 3 %; Platelet Estimate Decreased; Segmented Neutrophils 68 % (50-85); Total Cells Counted 100
[2020-01-05 06:12] LABS: Anisocytosis 2+; Macrocytosis 1+; Stomatocytes Few
[2020-01-05] MEDS: LINACLOTIDE 145 MCG CAPSULE PO SCH (07:09)
[2020-01-05] MEDS: HYDROmorphone 2 MG/1 ML VIAL IV PRN ×2 (08:03→13:10)
[2020-01-05] MEDS: ALPRAZolam 0.25 MG TABLET PO SCH ×2 (08:41→21:00)
[2020-01-05] MEDS: carvediloL 6.25 MG TABLET PO SCH (08:43)
[2020-01-05] MEDS: PHENAZOPYRIDINE 95 MG TABLET PO SCH ×2 (08:43→18:36)
[2020-01-05] MEDS: MULTIVITAMIN (BEROCCA) TABLET PO SCH (08:44)
[2020-01-05] MEDS: PANTOPRAZOLE 40 MG TABLET PO SCH (08:44)
[2020-01-05] MEDS: POTASSIUM CHLORIDE 20 MEQ TABLET PO SCH (08:44)
[2020-01-05] MEDS: POLYETHYLENE GLYCOL POWDER 17 GM PACK PO SCH ×2 (08:44→20:41)
[2020-01-05] MEDS: DOCUSATE SODIUM 100 MG CAPSULE PO SCH ×2 (08:44→20:41)
[2020-01-05] MEDS ORDERED: SERTRALINE 25 MG TABLET PO ONE (10:39)
[2020-01-05] MEDS: ALPRAZolam 0.25 MG TABLET PO PRN (13:10)
[2020-01-05] MEDS: FUROSEMIDE 20 MG/2 ML VIAL IV SCH (14:27)
[2020-01-05] MEDS: TEMAZEPAM 7.5 MG CAPSULE PO SCH (20:42)
[2020-01-05] MEDS: SENNA 8.6 MG TABLET PO SCH (20:42)
[2020-01-05] MEDS: SERTRALINE 25 MG TABLET PO SCH (21:00)
[2020-01-05] MEDS: HYDROmorphone 2 MG TABLET PO PRN (21:01)
[2020-01-06] MEDS: HYDROmorphone 2 MG TABLET PO PRN ×2 (07:18→20:23)
[2020-01-06] MEDS: LINACLOTIDE 145 MCG CAPSULE PO SCH (07:20)
[2020-01-06] MEDS: DOCUSATE SODIUM 100 MG CAPSULE PO SCH ×2 (08:37→22:42)
[2020-01-06] MEDS: MULTIVITAMIN (BEROCCA) TABLET PO SCH (08:37)
[2020-01-06] MEDS: POLYETHYLENE GLYCOL POWDER 17 GM PACK PO SCH ×2 (08:37→22:42)
[2020-01-06] MEDS: PHENAZOPYRIDINE 95 MG TABLET PO SCH ×2 (08:37→18:48)
[2020-01-06] MEDS: carvediloL 6.25 MG TABLET PO SCH (08:37)
[2020-01-06] MEDS: POTASSIUM CHLORIDE 20 MEQ TABLET PO SCH (08:37)
[2020-01-06] MEDS: PANTOPRAZOLE 40 MG TABLET PO SCH (08:38)
[2020-01-06] MEDS: ALPRAZolam 0.25 MG TABLET PO SCH ×2 (11:49→20:23)
[2020-01-06] MEDS: fentaNYL 100 MCG/HR PATCH TRANSDERM SCH (11:51)
[2020-01-06] MEDS: fentaNYL 50 MCG/HR PATCH TRANSDERM SCH (11:52)
[2020-01-06] MEDS: HYDROmorphone 2 MG/1 ML VIAL IV PRN (12:37)
[2020-01-06] MEDS: FUROSEMIDE 20 MG/2 ML VIAL IV SCH (16:57)
[2020-01-06] MEDS: SERTRALINE 25 MG TABLET PO SCH (20:24)
[2020-01-06] MEDS: TEMAZEPAM 7.5 MG CAPSULE PO SCH (22:43)
[2020-01-06] MEDS: SENNA 8.6 MG TABLET PO SCH (22:43)
[2020-01-07 05:57] LABS: Basophils % 0.2 % (0.0-0.8); Hematocrit 25.7 VOL% (35.7-47.0); Hemoglobin 8.6 GM/DL (12.0-16.0); Immature Granulocytes % 3.9 %; Immature Granulocytes Absolute 0.17 #; Lymphocytes # 0.4 10*3/uL (1.4-4.0); Lymphocytes % 9.3 % (21.3-54.2); Mean Corpuscular HGB Conc 33.5 GM/DL (32-36); Mean Corpuscular Volume 95.9 FL (87-102); Monocytes % 10.5 % (1.7-12.7); Neutrophils % 76.1 % (38.7-73.9); Red Blood Count 2.68 MC/CUMM (3.8-5.5); Red Cell Distribution Width 21.4 % (9.3-17.3); White Blood Count 4.4 T/CUMM (4-12)
[2020-01-07 06:06] LABS: Platelet Count 48 T/CUMM (130-400)
[2020-01-07 06:42] LABS: Albumin 1.5 G/DL (3.4-5.0); Calcium 9.6 MG/DL (8.5-10.1); Hypochromasia 1+; Osmolality,Calculated 266.9 MOS/KG (273-304); Total Protein 5.8 G/DL (6.4-8.3)
[2020-01-07 06:43] LABS: Macrocytosis 1+; Target Cells Slight
[2020-01-07 07:06] LABS: Bilirubin,Total 19.6 MG/DL (0.2-1.0)
[2020-01-07] MEDS: LINACLOTIDE 145 MCG CAPSULE PO SCH (07:09)
[2020-01-07] MEDS: HYDROmorphone 2 MG/1 ML VIAL IV PRN ×2 (09:23→23:58)
[2020-01-07] MEDS: PROMETHAZINE INJ 25 MG in SODIUM CHLORIDE 0.9% 50 ML IV PRN ×2 (09:24→20:31)
[2020-01-07] MEDS: DOCUSATE SODIUM 100 MG CAPSULE PO SCH ×2 (10:19→20:34)
[2020-01-07] MEDS: POTASSIUM CHLORIDE 20 MEQ TABLET PO SCH (10:19)
[2020-01-07] MEDS: MULTIVITAMIN (BEROCCA) TABLET PO SCH (10:19)
[2020-01-07] MEDS: FUROSEMIDE 20 MG/2 ML VIAL IV SCH (10:19)
[2020-01-07] MEDS: carvediloL 6.25 MG TABLET PO SCH (10:19)
[2020-01-07] MEDS: PHENAZOPYRIDINE 95 MG TABLET PO SCH ×2 (10:19→16:20)
[2020-01-07] MEDS: POLYETHYLENE GLYCOL POWDER 17 GM PACK PO SCH ×2 (10:20→20:34)
[2020-01-07] MEDS: PANTOPRAZOLE 40 MG TABLET PO SCH (10:20)
[2020-01-07] MEDS: ALPRAZolam 0.25 MG TABLET PO SCH ×2 (11:22→23:26)
[2020-01-07] MEDS: SENNA 8.6 MG TABLET PO SCH (20:35)
[2020-01-07] MEDS: TEMAZEPAM 7.5 MG CAPSULE PO SCH (20:35)
[2020-01-07] MEDS: SERTRALINE 25 MG TABLET PO SCH ×2 (23:26→23:59)
[2020-01-07] MEDS: ALPRAZolam 0.25 MG TABLET PO PRN (23:46)
[2020-01-08 05:50] LABS: Basophils % 0.2 % (0.0-0.8); Hematocrit 25.5 VOL% (35.7-47.0); Hemoglobin 8.4 GM/DL (12.0-16.0); Immature Granulocytes % 2.3 %; Immature Granulocytes Absolute 0.11 #; Lymphocytes # 0.4 10*3/uL (1.4-4.0); Lymphocytes % 7.8 % (21.3-54.2); Mean Corpuscular HGB Conc 32.9 GM/DL (32-36); Mean Corpuscular Volume 97.3 FL (87-102); Monocytes % 9.9 % (1.7-12.7); Neutrophils % 79.8 % (38.7-73.9); Platelet Count 51 T/CUMM (130-400); Red Blood Count 2.62 MC/CUMM (3.8-5.5); Red Cell Distribution Width 21.4 % (9.3-17.3); White Blood Count 4.9 T/CUMM (4-12)
[2020-01-08 06:06] LABS: Albumin 1.4 G/DL (3.4-5.0); Calcium 9.3 MG/DL (8.5-10.1); Osmolality,Calculated 274.7 MOS/KG (273-304); Total Protein 5.6 G/DL (6.4-8.3)
[2020-01-08 06:08] LABS: Bilirubin,Total 19.8 MG/DL (0.2-1.0)
[2020-01-08 06:23] LABS: Hypochromasia 1+; Macrocytosis Slight; Platelet Estimate Decreased
[2020-01-08] MEDS: ALPRAZolam 0.25 MG TABLET PO SCH ×3 (07:52→20:34)
[2020-01-08] MEDS: PHENAZOPYRIDINE 95 MG TABLET PO SCH ×2 (07:59→18:44)
[2020-01-08] MEDS: MULTIVITAMIN (BEROCCA) TABLET PO SCH (07:59)
[2020-01-08] MEDS: DOCUSATE SODIUM 100 MG CAPSULE PO SCH ×2 (07:59→22:19)
[2020-01-08] MEDS: carvediloL 6.25 MG TABLET PO SCH (07:59)
[2020-01-08] MEDS: POTASSIUM CHLORIDE 20 MEQ TABLET PO SCH (07:59)
[2020-01-08] MEDS: LINACLOTIDE 145 MCG CAPSULE PO SCH (07:59)
[2020-01-08] MEDS: PANTOPRAZOLE 40 MG TABLET PO SCH (08:00)
[2020-01-08] MEDS: POLYETHYLENE GLYCOL POWDER 17 GM PACK PO SCH ×2 (08:00→22:19)
[2020-01-08] MEDS: ONDANSETRON 4 MG/2 ML VIAL IV PRN (10:11)
[2020-01-08] MEDS: FUROSEMIDE 20 MG/2 ML VIAL IV SCH (10:12)
[2020-01-08] MEDS: SERTRALINE 25 MG TABLET PO SCH (20:34)
[2020-01-08] MEDS: HYDROmorphone 2 MG/1 ML VIAL IV PRN (20:40)
[2020-01-08] MEDS: TEMAZEPAM 7.5 MG CAPSULE PO SCH (22:20)
[2020-01-08] MEDS: SENNA 8.6 MG TABLET PO SCH (22:20)
[2020-01-09 09:02] VITALS: BP 85/42
[2020-01-09] MEDS: LINACLOTIDE 145 MCG CAPSULE PO SCH (10:58)
[2020-01-09] MEDS: PHENAZOPYRIDINE 95 MG TABLET PO SCH (10:59)
[2020-01-09] MEDS: carvediloL 6.25 MG TABLET PO SCH (10:59)
[2020-01-09] MEDS: fentaNYL 100 MCG/HR PATCH TRANSDERM SCH (11:03)
[2020-01-09] MEDS: ALPRAZolam 0.25 MG TABLET PO SCH ×2 (11:03→20:26)
[2020-01-09] MEDS: fentaNYL 50 MCG/HR PATCH TRANSDERM SCH (11:04)
[2020-01-09] MEDS: HYDROmorphone 2 MG/1 ML VIAL IV PRN ×2 (15:40→20:04)
[2020-01-09] MEDS: TEMAZEPAM 7.5 MG CAPSULE PO SCH (20:25)
[2020-01-09] MEDS: SERTRALINE 25 MG TABLET PO SCH (20:26)
[2020-01-10] MEDS: HYDROmorphone 2 MG/1 ML VIAL IV PRN ×5 (07:24→21:01)
[2020-01-10] MEDS: ALPRAZolam 0.25 MG TABLET PO SCH ×2 (09:22→20:23)
[2020-01-10] MEDS: ONDANSETRON 4 MG/2 ML VIAL IV PRN (14:04)
[2020-01-10] MEDS: TEMAZEPAM 7.5 MG CAPSULE PO SCH (20:22)
[2020-01-10] MEDS: SERTRALINE 25 MG TABLET PO SCH (20:23)
[2020-01-11] MEDS: HYDROmorphone 2 MG/1 ML VIAL IV PRN ×13 (00:36→23:24)
[2020-01-11] MEDS: ONDANSETRON 4 MG/2 ML VIAL IV PRN (05:36)
[2020-01-11] MEDS: PROMETHAZINE INJ 25 MG in SODIUM CHLORIDE 0.9% 50 ML IV PRN (08:19)
[2020-01-11] MEDS: ALPRAZolam 0.25 MG TABLET PO SCH ×2 (08:23→20:37)
[2020-01-11] MEDS: LORazepam 2 MG/1 ML VIAL IV PRN ×3 (15:39→22:27)
[2020-01-11] MEDS: SERTRALINE 25 MG TABLET PO SCH (20:37)
[2020-01-12] MEDS: HYDROmorphone 2 MG/1 ML VIAL IV PRN ×8 (01:32→10:41)
[2020-01-12] MEDS: LORazepam 2 MG/1 ML VIAL IV PRN (06:30)
[2020-01-12] MEDS: ALPRAZolam 0.25 MG TABLET PO SCH (09:30)
[2020-01-12] MEDS: fentaNYL 50 MCG/HR PATCH TRANSDERM SCH (10:40)
[2020-01-12] MEDS ORDERED: fentaNYL 100 MCG/HR PATCH TRANSDERM SCH (11:00)
[2020-01-12] MEDS ORDERED: NALOXONE 0.4 MG/ML VIAL IV PRN (11:03)
[2020-01-12] MEDS ORDERED: HYDROmorphone PCA 30 MG/30 ML SYRINGE IV SCH (11:30)
[2020-01-12] MEDS ORDERED: SCOPOLAMINE 1.5 MG PATCH TRANSDERM SCH (12:30)
[2020-01-12] MEDS ORDERED: LORazepam 2 MG/1 ML VIAL IV PRN (16:08)
== END 2020-01-12 17:45 | disposition expired | DRG 947 ==
LOC: EDUNIT# → N.ED 22:20 → SUATTDRO 12-13 01:19 → N.EDINP 12-13 01:19 → N.4E 12-13 02:38
PROVIDERS: ADMIT Internal Medicine; ATTEND Family Medicine